=== PATIENT | female | born 1965 | race African-American/Black ===

== ENCOUNTER 2016-11-05 12:42 | Emergency (ER) | payer SELFPAY ==
[2016-11-05 12:53] VITALS: BMI 53.2
[2016-11-05] MEDS ORDERED: diphenhydrAMINE HCL 25 MG CAPSULE (FP) PO ONE (13:45)
--- NOTE | 2016-11-05 13:54 | PDOC ---
History of Present Illness - General Chief Complaint: Pain Stated Complaint: HEMATURIA Time Seen by Provider: 11/05/16 12:58 History Source: Patient Exam Limitations: Language Barrier (Used spanish medical interpreter #[id number]) - History of Present Illness Initial Comments: 11/05/16 13:54 The patient is a 51F Past History - Past Medical History Allergies/Adverse Reactions: Allergies Allergy/AdvReac Type Severity Reaction Status Date / Time No Known Allergies Allergy Verified 11/05/16 12:51 Home Medications: Ambulatory Orders Acetaminophen [Pain Reliever] 500 mg PO QID PRN 11/08/14 Atorvastatin Ca [Lipitor] 20 mg PO HS 11/08/14 Bupropion HCl [Wellbutrin Xl] 300 mg PO DAILY 11/08/14 Citalopram Hydrobromide [Celexa -] 40 mg PO DAILY 11/08/14 Diazepam [Valium -] 5 mg PO BID #14 tablet 11/08/14 Diltiazem Cd [Cardizem Cd -] 360 mg PO DAILY 11/08/14 Ergocalciferol (Vitamin D2) [Drisdol] 50,000 units PO WEEKLY 11/08/14 Folic Acid 1 mg PO DAILY 11/08/14 Furosemide [Lasix -] 20 mg PO DAILY 11/08/14 Linaclotide [Linzess] 145 mcg PO DAILY 11/08/14 Losartan Potassium [Cozaar] 100 mg PO DAILY 11/08/14 Mirabegron [Myrbetriq] 25 mg PO DAILY 11/08/14 Montelukast Na [Singulair -] 10 mg PO HS 11/08/14 Pantoprazole Sodium [Protonix] 40 mg PO DAILY 11/08/14 Propranolol HCl [Inderal LA] 120 mg PO DAILY 11/08/14 Solifenacin Succinate [Vesicare] 5 mg PO DAILY 11/08/14 Clindamycin [Cleocin -] 300 mg PO TID #30 capsule 02/28/16 Oxycodone HCl/Acetaminophen [Percocet 5-325 mg Tablet] 1 - 2 tab PO Q6H #28 tab MDD 4 02/28/16 Anemia: Yes Asthma: Yes Cardiac Disorders: Yes (palpitations) Diabetes: Yes GI Disorders: Yes HTN: Yes Hypercholesterolemia: Yes Suicide Attempt (Hx): No - Surgical History Abdominal Surgery: Yes - Immunization History Td Vaccination: No TDAP Vaccination: No Immunization Up to Date: No - Psycho/Social/Smoking Cessation Hx Anxiety: No Suicidal Ideation: No Smoking Status: No Smoking History: Never smoked Have you smoked in the past 12 months: No Number of Cigarettes Smoked Daily: 0 Hx Alcohol Use: No Drug/Substance Use Hx: No Substance Use Type: None *Physical Exam - Vital Signs Last Vital Signs Temp Pulse Resp BP Pulse Ox 98.2 F 78 20 161/110 98 11/05/16 12:51 11/05/16 12:51 11/05/16 12:51 11/05/16 12:51 11/05/16 12:51
[2016-11-05] MEDS ORDERED: morphine CARPU-JECT 4 MG/1 ML DISP.SYRIN IVPUSH ONE (14:05)
--- NOTE | 2016-11-05 14:11 | PDOC ---
History of Present Illness <Shell Lewis - Last Filed: 11/05/16 14:49> - General History Source: Patient, Old Records Exam Limitations: No Limitations <Hyun Jauregui - Last Filed: 11/05/16 17:57> - General History Source: Patient Exam Limitations: No Limitations - History of Present Illness Initial Comments: 11/05/16 14:20 The patient is a 51 year old female with a significant past medical history of horseshoe kidney, HTN and diabetes who presents to the ED, sent by PMD, for 15 days with complaints of right upper quadrant pain and right flank pain. The patient reports progressively worsening right upper quadrant pain and right sided flank pain. The patient also reports hematuria and a subjective fever associated with present symptoms. She visited her PMD yesterday and had normal CBC and chemistries but had blood in the urine. Denies dysuria. Denies nausea, vomiting, or diarrhea. Denies chest pain or shortness of breath. Denies any other symptoms. <Juan Carlos Powers - Last Filed: 11/05/16 18:08> - General Chief Complaint: Pain Stated Complaint: HEMATURIA Time Seen by Provider: 11/05/16 12:58 Past History <Shell Lewis - Last Filed: 11/05/16 14:49> - Past Medical History Anemia: Yes Asthma: Yes Cardiac Disorders: Yes (palpitations) Diabetes: Yes GI Disorders: Yes HTN: Yes Hypercholesterolemia: Yes Suicide Attempt (Hx): No - Surgical History Abdominal Surgery: Yes - Immunization History Td Vaccination: No TDAP Vaccination: No Immunization Up to Date: No - Psycho/Social/Smoking Cessation Hx Anxiety: No Suicidal Ideation: No Smoking Status: No Smoking History: Never smoked Have you smoked in the past 12 months: No Number of Cigarettes Smoked Daily: 0 Hx Alcohol Use: No Drug/Substance Use Hx: No Substance Use Type: None <Hyun Jauregui - Last Filed: 11/05/16 17:57> <Juan Carlos Powers - Last Filed: 11/05/16 18:08> - Past Medical History Allergies/Adverse Reactions: Allergies Allergy/AdvReac Type Severity Reaction Status Date / Time No Known Allergies Allergy Verified 11/05/16 12:51 Home Medications: Ambulatory Orders Bupropion HCl [Wellbutrin Xl] 300 mg PO DAILY 11/08/14 Folic Acid 1 mg PO DAILY 11/08/14 Furosemide [Lasix -] 20 mg PO DAILY 11/08/14 Linaclotide [Linzess] 145 mcg PO DAILY 11/08/14 Mirabegron [Myrbetriq] 25 mg PO DAILY 11/08/14 Pantoprazole Sodium [Protonix] 40 mg PO DAILY 11/08/14 Albuterol Sulfate Inhaler - [Ventolin Hfa Inhaler -] 2 inh PO PRN 11/05/16 Ammonium Lactate Cream [Lac-Hydrin 12% *Cream*] 1 applic TP BID 11/05/16 Azilsartan Medoxomil [Edarbi] 80 mg PO DAILY 11/05/16 Clotrimazole/Betamet Diprop [Lotrisone -] 1 applic TP DAILY 11/05/16 Duloxetine HCl [Cymbalta -] 60 mg PO DAILY 11/05/16 Esomeprazole Magnesium [Nexium 24Hr] 40 mg PO DAILY 11/05/16 Lidocaine 5% Patch [Lidoderm Patch -] 1 patch TP BID 11/05/16 Metformin HCl [Metformin HCl ER] 1 tab PO BID 11/05/16 Montelukast Na [Singulair -] 10 mg PO HS 11/05/16 Nystatin Powder [Nystop Topical Powder -] 10,000 units TP BID 11/05/16 Oxycodone HCl/Acetaminophen [Percocet 5-325 mg Tablet] 2 tab PO Q6H MDD 4 Propranolol HCl [Inderal LA] 120 mg PO DAILY 11/05/16 Sulfamethoxazole/Trimethoprim [Bactrim SS -] 1 tab PO BID 11/05/16 Review of Systems - Review of Systems Able to Perform ROS?: Yes Comments:: 11/05/16 14:20 CONSTITUTIONAL: + fever No reported: Diaphoresis, Generalized Weakness, Malaise, Loss of Appetite HEENT: No reported: Rhinorrhea, Nasal Congestion, Throat Pain, Throat Swelling, Difficulty Swallowing, Mouth Swelling, Ear Pain, Eye Pain, Visual Changes CARDIOVASCULAR: No reported: Chest Pain, Syncope, Palpitations, Irregular Heart Rate, Lightheadedness, Peripheral Edema RESPIRATORY: No reported: Cough, Shortness of Breath, SOB with Exertion, Orthopnea, Wheezing , Stridor, Hemoptysis GASTROINTESTINAL: + upper quadrant pain No reported Abdominal Distension, Nausea, Vomiting, Diarrhea, Constipation, Melena, Hematochezia GENITOURINARY: + flank pain, hematuria No reported: Dysuria, Frequency, Urgency, Hesitancy, Genital Pain MUSCULOSKELETAL: No reported: Myalgia, Arthralgia, Joint Swelling, Back pain, Neck Pain SKIN: No reported: Rash, Itching, Pallor HEMEATOLOGIC/IMMUNOLOGIC: No reported: Easy Bleeding, Easy Bruising, Lymphadenopathy, Frequent infections ENDOCRINE: No reported: Unexplained Weight Gain, Unexplained Weight Loss, Heat Intolerance , Cold Intolerance NEUROLOGIC: No reported: Headache, Focal Weakness, Paresthesias, Vertigo, Lightheadedness, Unsteady Gait, Seizure, Mental Status Changes, Incontinence PSYCHIATRIC: No reported: Anxiety, Depression All Other Systems: Reviewed and Negative <Juan Carlos Powers - Last Filed: 11/05/16 18:08> *Physical Exam - Vital Signs Last Vital Signs Temp Pulse Resp BP Pulse Ox 98.2 F 78 20 161/110 98 11/05/16 12:51 11/05/16 12:51 11/05/16 12:51 11/05/16 12:51 11/05/16 12:51 <Shell Lewis - Last Filed: 11/05/16 14:49> - Vital Signs Last Vital Signs Temp Pulse Resp BP Pulse Ox 98.2 F 78 20 161/110 98 11/05/16 12:51 11/05/16 12:51 11/05/16 12:51 11/05/16 12:51 11/05/16 12:51 <Hyun Jauregui - Last Filed: 11/05/16 17:57> - Vital Signs Last Vital Signs Temp Pulse Resp BP Pulse Ox 98.2 F 78 20 161/110 98 11/05/16 12:51 11/05/16 12:51 11/05/16 12:51 11/05/16 12:51 11/05/16 12:51 - Physical Exam Comments: 11/05/16 14:20 GENERAL: + obese, in obvious discomfort Awake and alert. HEENT: Normocephalic, atraumatic. PERRLA, EOMI. No conjunctival pallor. Sclera are non- icteric. Moist mucous membranes. Oropharynx is clear. NECK: Supple. Full ROM. No JVD. Carotid pulses 2+ and symmetric, without bruits. No thyromegaly. No lymphadenopathy. CARDIOVASCULAR: Regular rate and rhythm. No murmurs, rubs, or gallops. Distal pulses are 2+ and symmetric. PULMONARY: No evidence of respiratory distress. Lungs clear to auscultation bilaterally. No wheezing, rales or rhonchi. ABDOMINAL: + right upper quadrant tenderness with questionable ralph's sign, Soft. Non-distended. No rebound or guarding. No organomegaly. Normoactive bowel sounds. MUSCULOSKELETAL Normal range of motion at all joints. No bony deformities or tenderness. No CVA tenderness. EXTREMITIES: + 2+ bipedal edema No cyanosis. No clubbing. No calf tenderness. SKIN: Warm and dry. Normal capillary refill. No rashes. No jaundice. NEUROLOGICAL: Alert, awake, appropriate. Cranial nerves 2-12 intact. No deficits to light touch and temperature in face, upper extremities and lower extremities. No motor deficits in the in face, upper extremities and lower extremities. Normoreflexic in the upper and lower extremities. Normal speech. Toes are down- going bilaterally. Gait is normal without ataxia. PSYCHIATRIC: Cooperative. Good eye contact. Appropriate mood and affect. <Juan Carlos Powers - Last Filed: 11/05/16 18:08> Procedures - Bedside Ultrasound Bedside Ultrasound: Gallbladder Other: see [facility] for report <Shell Lewis - Last Filed: 11/05/16 14:49> ED Treatment Course - LABORATORY CBC & Chemistry Diagram: 11/05/16 14:35 11/05/16 14:35 - Medications Given in the ED: ED Medications Discontinued Medications Generic Name Dose Route Start Last Admin Trade Name Vamsi PRN Reason Stop Dose Admin Diphenhydramine HCl 25 mg 11/05/16 13:45 11/05/16 14:44 Benadryl - PO 11/05/16 13:46 Not Given ONCE ONE Morphine Sulfate 4 mg 11/05/16 14:05 11/05/16 14:44 Morphine Injection - IVPUSH 11/05/16 14:06 4 mg ONCE ONE Administration <Shell Lewis - Last Filed: 11/05/16 14:49> - LABORATORY CBC & Chemistry Diagram: 11/05/16 14:35 11/05/16 14:35 <Hyun Jauregui - Last Filed: 11/05/16 17:57> - LABORATORY CBC & Chemistry Diagram: 11/05/16 14:35 11/05/16 14:35 - RADIOLOGY Radiograph Interpretation: 11/05/16 16:28 CT/ABDOMEN & PELVIS CT W/O CONTR Impression: 1. Mild diffuse fatty infiltration of the liver. 2. Horseshoe kidneys. 3. s/p hysterectomy with bilateral ovarian cysts. Clinical correlation and follow up pelvic sonogram recommended. 4. No evidence of appendicitis or acute pathology within the abdomen or pelvis. Reported by: Carlyle Graves <Juan Carlos Powers - Last Filed: 11/05/16 18:08> Medical Decision Making - Medical Decision Making 11/05/16 14:49 focused ED ultrasound RUQ indication RUQ pain: Gallbladder scanned in two planes with curvilinear probe no stone, no wall thickening or edema. no pericholecystic fluid. positive sonographic ralph's wall measured 2mm CBD measured 4.8 mm impression: normal gallbladder, noted RUQ tenderness cirilli <Shell Lewis - Last Filed: 11/05/16 14:49> - Medical Decision Making 11/05/16 14:07 51-year-old female with history of hypertension and diabetes presents the emergency department with 2 week history of right upper quadrant and right flank pain with hematuria. Differential diagnosis includes but is not limited to : Nephrolithiasis, pyelonephritis, gallbladder disease, pancreatitis, electrolyte abnormality, dehydration, toxic/metabolic derangement. Plan: 1. Labs 2. Urine analysis 3. Pain management 4. CT scan of abdomen and pelvis 5. Observe and reevaluate 11/05/16 17:57 Addendum: Labs were reviewed and are noted in the EMR. CT scan shows bilateral coarse 2 kidneys as well as fatty infiltration of the liver and no nephrolithiasis. The patient was so tender in the right upper quadrant an ultrasound was obtained that was also negative for any intra-abdominal pathology except for fatty liver. I have reassessed the patient at this time and she is feeling improved and wants to go home. I've discussed all of the results of all of the studies with her. I have also stressed the importance to follow-up with her primary care physician. I will call Dr. Whatley to discuss the results and the plan for discharge. <Hyun Jauregui - Last Filed: 11/05/16 17:57> - Medical Decision Making 11/05/16 18:[address] Whatley at 18:07 <Juan Carlos Powers - Last Filed: 11/05/16 18:08> *DC/Admit/Observation/Transfer <DebbieShell - Last Filed: 11/05/16 14:49> - Discharge Dispostion Admit: No - Attestations Physician Attestion: 11/05/16 14:09 I, Dr. Hyun Jauregui, attest that the scribes documentation that appears above has been prepared under my direction and personally reviewed by me in its entirety. I confirmed that the note above accurately reflects all work, treatment, procedures, and medical decision-making performed by me. <Hyun Jauregui - Last Filed: 11/05/16 17:57> - Attestations Scribe Attestion: 11/05/16 14:20 Documentation prepared by Juan Carlos Powers, acting as medical scientific officer for Hyun Jauregui MD <Juan Carlos Powers - Last Filed: 11/05/16 18:08> Diagnosis at time of Disposition: RUQ pain - Discharge Dispostion Disposition: HOME Condition at time of disposition: Stable - Referrals Referrals: Terence Whatley MD [Primary Care Provider] - - Patient Instructions Printed Discharge Instructions: DI for Abdominal Pain-Adult Additional Instructions: Radiographic studies showed that you have fatty infiltration of the liver. Please follow-up with your primary care physician and return to the emergency department if your symptoms persist, worsen, or new symptoms arise.
[2016-11-05] MEDS ORDERED: morphine CARPU-JECT 4 MG/1 ML DISP.SYRIN ONE (14:40)
[2016-11-05 14:49] LABS: BASOPHIL 1.1 % (0-2.0); EOSINOPHIL 0.9 % (0-4.5); MCH 27.9 pg (25.7-33.7); MCHC 33.5 g/dl (32.0-36.0); MEAN CELL VOLUME 83.2 fl (80-96); MEAN PLT VOLUME 9.2 fl (7.5-11.1); NEUTROPHILS 62.3 % (42.8-82.8); PLATELET COUNT 361 K/MM3 (134-434); RDW 15.4 % (11.6-15.6); WHITE BLOOD COUNT 10.2 K/mm3 (4.0-10.0)
[2016-11-05 15:38] LABS: ALBUMIN 3.2 g/dl (3.4-5.0); ANION GAP 9 (8-16); BILIRUBIN,TOTAL 0.4 mg/dL (0.2-1.0); CALCIUM 8.9 mg/dL (8.5-10.1); CO2 29 mmol/L (21-32); CREATININE 0.9 mg/dL (0.55-1.02); GLUCOSE,RANDOM 79 mg/dL (74-106); SGPT/ALT 28 U/L (12-78); TOT PROT 7.1 g/dl (6.4-8.2)
[2016-11-05 15:42] LABS: ALK PHOS 101 U/L (45-117); TROPONIN I < 0.02 ng/ml (0.00-0.05)
[2016-11-05 15:49] LABS: CPK 137 IU/L (26-192); SGOT/AST 26 U/L (15-37)
[2016-11-05 17:41] LABS: URINE APPEARANCE CLEAR; URINE BILIRUBIN NEGATIVE (NEGATIVE); URINE BLOOD 1+ (NEGATIVE); URINE COLOR LTYELLOW; URINE GLUCOSE (UA) NEGATIVE (NEGATIVE); URINE KETONE NEGATIVE (NEGATIVE); URINE LEUK ESTERASE NEGATIVE (NEGATIVE); URINE NITRITE NEGATIVE (NEGATIVE); URINE UROBILINOGEN NEGATIVE mg/dL (0.2-1.0)
[2016-11-05 17:44] LABS: URINE PROTEIN 2+ (NEGATIVE)
[2016-11-05 18:24] VITALS: BP 138/98; PULSE 74; TEMP 97.8
[2016-11-05 19:23] LABS: URINE MUCUS RARE; URINE RBC 2 /hpf (0-3); URINE WBC <1 /hpf (3-5)
--- NOTE | 2016-11-06 14:46 | EKG ---
Test Reason : Blood Pressure : / mmHG Vent. Rate : 065 BPM Atrial Rate : 065 BPM P-R Int : 154 ms QRS Dur : 072 ms QT Int : 416 ms P-R-T Axes : 041 034 019 degrees QTc Int : 432 ms NORMAL SINUS RHYTHM CANNOT RULE OUT ANTERIOR INFARCT , AGE UNDETERMINED ABNORMAL ECG WHEN COMPARED WITH ECG OF 08-SEP-2012 09:53, NO SIGNIFICANT CHANGE WAS FOUND Confirmed by BRITNEY AGUIAR MD ([id number]) on 11/06/2016 2:45:47 PM Referred By: Confirmed By:BRITNEY AGUIAR MD
== END 2016-11-05 18:34 | disposition home or self-care (01) ==
LOC: JER 12:42
PROC: 3E033NZ Introduction of Analgesics, Hypnotics, Sedatives into Peripheral Vein, Percutaneous Approach (ICD-10-PCS; principal; 2016-11-05)
DX: R10.11 Right upper quadrant pain (principal); Q63.1 Lobulated, fused and horseshoe kidney; I10 Essential (primary) hypertension; E11.9 Type 2 diabetes mellitus without complications; R00.2 Palpitations
CPT/HCPCS: 36415; 74176-TC; 76705-TC; 80053; 81003; 81015; 83690; 84484; 85025; 87086; 93005; 93010; 99284-25; Q9967

== ENCOUNTER 2017-05-03 15:10 | Inpatient (IN) | payer OTHER ==
--- NOTE | 2017-05-03 15:57 | PDOC ---
Attending Attestation - Resident Resident Name: PerezColette - ED Attending Attestation I have performed the following: I have examined & evaluated the patient, The case was reviewed & discussed with the resident, I agree w/resident's findings & plan, Exceptions are as noted - Medical Decision Making 05/03/17 15:57 I, Dr. Vanessa Griffin, DO, attest that this document has been prepared under my direction and personally reviewed by me in its entirety. I further attest, that it accurately reflects all work, treatment, procedures and medical decision -making performed by me. 05/03/17 17:17 51yo female with abd wall abscess -sent by dr. whatley for i/d and admission pt with multiple abd wall abscess - most with induration and no fluctuance -larger LUQ abd wall abscess - bedside ultrasound shows very small pocket - will do i/d for cultures mostly cobblestoning and cellulitis will obtain labs, cultures, will start iv abx percocet for pain control will call dr. whatley 05/03/17 17:[address] whatley who is being covered by dr. hernandez 05/03/17 17:19 awaiting call back 05/03/17 18:45 pt with elevated wbc microblog sent to [facility] pt will need admission <Vanessa Griffin - Last Filed: 05/03/17 18:45> - HPI HPI: 05/03/17 16:31 51 F, PMH of horseshoe kidney, HTN, HLD, morbid obesity, and diabetes, sent by PCP for abscess I&D. Patient presents with multiple warm, red, and painful abscesses on her abdomen that developed 1 week ago. She reports the largest and most painful abscess is located at the LUQ. She also reports of a smaller abscess at the RUQ. She reports the abscess has been draining slightly. Patient appears tearful secondary to pain. She admits to associated fever and chills. Patient has a history of abdominal abscesses, was treated for one last year with a drainage and antibiotics. Pt denies CP/SOB/BLANCA/dizziness. Pt denies n/v/d/constipation. Pt denies dysuria, frequency, urgency and hematuria. - Physicial Exam PE: 05/03/17 16:31 GENERAL: Awake, alert, and fully oriented, (+) patient appears tearful. HEAD: No signs of trauma EYES: PERRLA, EOMI, sclera anicteric, conjunctiva clear ENT: Auricles normal inspection, hearing grossly normal, nares patent, oropharynx clear without exudates. Moist mucosa NECK: Normal ROM, supple, no lymphadenopathy, JVD, or masses LUNGS: Breath sounds equal, clear to auscultation bilaterally. No wheezes, and no crackles HEART: Regular rate and rhythm, normal S1 and S2, no murmurs, rubs or gallops ABDOMEN: (+) Multiple little indurated areas on abdomen. (+) 8x10 cm indurated region at the LUQ, hot to touch and ttp. Soft, normoactive bowel sounds. No guarding, no rebound. EXTREMITIES: Normal range of motion, no edema. No clubbing or cyanosis. No cords, erythema, or tenderness NEUROLOGICAL: Cranial nerves II through XII grossly intact. Normal speech SKIN: Warm, Dry, normal turgor, no rashes. - Medical Decision Making 05/03/17 16:55 Dr. Whatley (covered by Dr. Hernandez) was paged at 4:50 pm. Waiting for call back. <Lyric Ward - Last Filed: 05/03/17 19:07> Heart Score/ECG Review - ECG Intrepretation Comment:: 05/03/17 18:47 sinus at 90, nl axis, nl interval, t wave flattening diffusely <Vanessa Griffin - Last Filed: 05/03/17 18:45>
[2017-05-03] MEDS ORDERED: VANCOMYCIN 1 GRAM (PRE-DOCKED) 1,000 MG/250 ML BAG IVPB ONE ×2 (16:46→16:58)
[2017-05-03 18:06] LABS: BASO % 0.6 % (0-2.0); EOS % 0.3 % (0-4.5); HEMATOCRIT 38.7 % (32.4-45.2); HEMOGLOBIN 12.3 GM/dL (10.7-15.3); LYMPH % 12.3 % (8-40); MCH 26.2 pg (25.7-33.7); MCHC 31.8 g/dl (32.0-36.0); MEAN CELL VOLUME 82.5 fl (80-96); MEAN PLT VOLUME 9.2 fl (7.5-11.1); MONO % 7.8 % (3.8-10.2); PLATELET COUNT 346 K/MM3 (134-434); RBC 4.69 M/mm3 (3.60-5.2); RDW 15.7 % (11.6-15.6); WHITE BLOOD COUNT 18.4 K/mm3 (4.0-10.0)
[2017-05-03 18:07] LABS: VENOUS PC02 41.7 mmHg (38-52); VENOUS PH 7.38 (7.32-7.42); VENOUS PO2 73.6 mmHg (28-48)
--- NOTE | 2017-05-03 18:07 | PDOC ---
History of Present Illness - General Chief Complaint: Abscess Boil Stated Complaint: PCP SENT/ABSCESS BOIL Time Seen by Provider: 05/03/17 15:47 History Source: Patient, Family Exam Limitations: No Limitations - History of Present Illness Initial Comments: This is a 51 YOF with h/o prior abdominal cutaneous abscess (one year ago, resolved with I&D and Bactrim) and morbid obesity who presents with another abdominal cutaneous abscess and multiple smaller lesions on her skin. She notes 10/10 pain to the abscess which is on the skin overlying the LUQ. She additionally notes recent subjective fever, chills, and nausea. She denies any prior h/o MRSA but says her abscess was not cultured last year. She took an antibiotic from a prior prescription last night but cannot recall the name. Past History - Past Medical History Allergies/Adverse Reactions: Allergies Allergy/AdvReac Type Severity Reaction Status Date / Time No Known Allergies Allergy Verified 11/05/16 12:51 Home Medications: Ambulatory Orders Albuterol Sulfate [Proair Hfa] 8.5 gm IH QID PRN 05/03/17 Ammonium Lactate Lotion [Lac-Hydrin 12% Lotion -] 1 applic TP BID 05/03/17 Bupropion HCl [Wellbutrin Xl] 300 mg PO DAILY 05/03/17 Clotrimazole/Betamet Diprop [Lotrisone Cream (Small Tube)] 1 applic TP BID 05/03 Cyanocobalamin [Vitamin B12 -] 1,000 mcg PO DAILY 05/03/17 Cyclobenzaprine HCl 5 mg PO DAILY 05/03/17 Diltiazem HCl [Cardizem LA] 360 mg PO DAILY 05/03/17 Duloxetine HCl 60 mg PO DAILY 05/03/17 Ergocalciferol [Drisdol Oral Solution -] 50,000 units PO WEEKLY 05/03/17 Esomeprazole Magnesium [Nexium 24Hr] 40 mg PO DAILY 05/03/17 Folic Acid 1 mg PO DAILY 05/03/17 Furosemide [Lasix] 40 mg PO DAILY 05/03/17 Lidocaine 5% Patch [Lidoderm Patch -] 1 patch TP BID 05/03/17 Lubiprostone [Amitiza] 24 mcg PO DAILY 05/03/17 Metformin HCl [Metformin HCl ER] 500 mg PO BID 05/03/17 Mirabegron [Myrbetriq] 50 mg PO DAILY 05/03/17 Montelukast Na [Singulair -] 10 mg PO DAILY 05/03/17 Nystatin 1 each MC BID 05/03/17 Oxycodone HCl/Acetaminophen [Percocet 10-325 mg Tablet] 1 each PO QID PRN Pantoprazole Sodium 40 mg PO DAILY 05/03/17 Propranolol HCl [Propranolol HCl ER] 120 mg PO DAILY 05/03/17 Valsartan 320 mg PO DAILY 05/03/17 Anemia: Yes Asthma: Yes Cardiac Disorders: Yes (palpitations) Diabetes: Yes GI Disorders: Yes HTN: Yes Hypercholesterolemia: Yes - Surgical History Abdominal Surgery: Yes - Immunization History Td Vaccination: No TDAP Vaccination: No Immunization Up to Date: No - Suicide/Smoking/Psychosocial Hx Smoking Status: No Smoking History: Never smoked Have you smoked in the past 12 months: No Number of Cigarettes Smoked Daily: 0 Hx Alcohol Use: No Drug/Substance Use Hx: No Substance Use Type: None Review of Systems - Review of Systems Able to Perform ROS?: Yes Constitutional: Yes: Chills, Fever. No: Unexplained wgt Loss HEENTM: No: Nose Congestion, Throat Pain Respiratory: No: Cough, Shortness of Breath Cardiac (ROS): No: Chest Pain, Palpitations ABD/GI: Yes: Nausea. No: Constipated, Diarrhea, Vomiting : No: Burning, Dysuria Musculoskeletal: No: Back Pain, Neck Pain Integumentary: Yes: Lesions, Other (abscess). No: Bruising, Rash Neurological: No: Headache, Numbness, Tingling, Weakness, Dizziness Endocrine: No: Unexplained Weight Gain, Unexplained Weight Loss *Physical Exam - Vital Signs Last Vital Signs Temp Pulse Resp BP Pulse Ox 98.1 F 106 H 24 150/106 99 05/03/17 15:15 05/03/17 15:15 05/03/17 15:15 05/03/17 15:15 05/03/17 15:15 - Physical Exam General Appearance: Yes: Nourished, Appropriately Dressed, Obese, Other. No: Apparent Distress HEENT: positive: EOMI, Normal Voice, Hearing Grossly Normal. negative: Scleral Icterus (R), Scleral Icterus (L), Nasal Congestion Neck: positive: Trachea midline, Supple. negative: Tender, Rigid Respiratory/Chest: positive: Lungs Clear, Normal Breath Sounds. negative: Respiratory Distress, Crackles, Rhonchi, Stridor, Wheezing Cardiovascular: positive: Regular Rhythm, Regular Rate. negative: Murmur Gastrointestinal/Abdominal: positive: Normal Bowel Sounds, Soft, Other (abdomen morbidly obese, multiple 2cm areas of erythema with scabbed 0.5mm central lesion , one LUQ skin 6x6cm area of erythema/warmth/tenderness with central scabbed area with 3x3 cm of induration and fluctuance). negative: Organomegaly, Pulsatile Mass, Guarding Musculoskeletal: positive: Normal Inspection. negative: Decreased Range of Motion, Vertebral Tenderness Extremity: positive: Normal Capillary Refill, Normal Inspection, Normal Range of Motion. negative: Tender, Cyanosis Integumentary: positive: Normal Color, Dry, Warm. negative: Erythema, Rash, Bruising Neurologic: positive: bottler II-XII NML intact (grossly), Fully Oriented, Alert, Normal Mood/Affect, Normal Response, Motor Strength 5/5 Procedures - Incision and Drainage I&D Site: Left: Abdomen Betadine cleansed: No Anesthesia: 1% Lidocaine Volume(ml): 4 Blade Size: 11 Attempts: 1 Iodinated Packin/2 in Complications: none Dressing: Yes Progress: 5cc purulent fluid expressed, culture sent ED Treatment Course - LABORATORY CBC & Chemistry Diagram: 05/04/17 06:00 05/04/17 06:00 - Medications Given in the ED: ED Medications Discontinued Medications Generic Name Dose Route Start Last Admin Trade Name Freq PRN Reason Stop Dose Admin Oxycodone/Acetaminophen 1 combo 05/03/17 16:20 05/03/17 17:06 Percocet 5/325 - PO 05/03/17 16:21 1 combo ONCE ONE Administration Medical Decision Making - Medical Decision Making 51 YOF with one prior abscess 1 yr ago who p/w multiple small erythematous lesions, also LUQ abscess, likely MRSA. On exam VS wnl, moderate distress, morbidly elevated BMI, LUQ abscess with scab wo active drainage. DDX IBNLT MRSA infection, simple abscesses i.e. from folliculitis, etc. Ordered is CBCD CMP Lactate BCx VBG Coags T&S UA Cx Wound Cx Vancomycin CXR EKG. 05/03/17 18:56 CXR nl. WBC 18.4, lactate is 0.9. Patient has been given Vancomycin. I&D done with 5cc purulent fluid and WCx sent. Patient admitted to Dr. Leigh (for [facility]) for IV abx and further workup. *DC/Admit/Observation/Transfer Diagnosis at time of Disposition: Abscess, Morbid obesity Leukocytosis Qualifiers: Leukocytosis type: unspecified Qualified Code(s): D72.829 - Elevated white blood cell count, unspecified - Discharge Dispostion Condition at time of disposition: Guarded Admit: Yes - Referrals - Patient Instructions - Post Discharge Activity
[2017-05-03 18:14] LABS: URINE APPEARANCE CLEAR; URINE BILIRUBIN NEGATIVE (NEGATIVE); URINE BLOOD NEGATIVE (NEGATIVE); URINE COLOR YELLOW; URINE GLUCOSE (UA) NEGATIVE (NEGATIVE); URINE KETONE NEGATIVE (NEGATIVE); URINE LEUK ESTERASE NEGATIVE (NEGATIVE); URINE NITRITE NEGATIVE (NEGATIVE); URINE UROBILINOGEN NEGATIVE mg/dL (0.2-1.0)
[2017-05-03 18:18] LABS: INR 1.14 (0.82-1.09); PROTHROMBIN TIME (PATIENT) 12.9 SEC (9.98-11.88)
[2017-05-03 18:27] LABS: ALBUMIN 3.1 g/dl (3.4-5.0); ANION GAP 7 (8-16); BILIRUBIN,TOTAL 0.4 mg/dL (0.2-1.0); BLOOD UREA NITROGEN 16 mg/dL (7-18); CALCIUM 8.3 mg/dL (8.5-10.1); CHLORIDE 106 mmol/L (98-107); CO2 25 mmol/L (21-32); CREATININE 0.9 mg/dL (0.55-1.02); GLUCOSE,RANDOM 92 mg/dL (74-106); SGPT/ALT 17 U/L (12-78); SODIUM 138 mmol/L (136-145); TOT PROT 6.8 g/dl (6.4-8.2)
[2017-05-03 18:28] LABS: ALK PHOS 107 U/L (45-117)
[2017-05-03 18:35] LABS: POTASSIUM 4.4 mmol/L (3.5-5.1); SGOT/AST 16 U/L (15-37)
[2017-05-03 18:45] LABS: URINE PROTEIN 3+ (NEGATIVE)
[2017-05-03 18:47] LABS: EPI CELLS RARE /HPF (FEW); URINE MUCUS RARE
--- NOTE | 2017-05-03 20:10 | HP ---
CHIEF COMPLAINT: "I have these pimples on my stomach." PCP: Chacorta HISTORY OF PRESENT ILLNESS: This is a 51-year-old woman with past medical history of hypertension, NIDDM, CHF, A. fib who presents to emergency department with multiple abscesses noted to anterior abdominal wall. Patient states the abscesses appear approximately one week ago and one of the abscesses had started draining. The large abscess in the left upper quadrant and began self draining which is why she sought out care today. Patient states she had similar episode approximately one year ago and required IV antibiotics to help treat status post I&D. She denies fevers, chills, chest pain, shortness of breath, dizziness, nausea, vomiting, diarrhea. ER course was notable for: (1) I&D on abdominal wall abscess (2) Leukocytosis- 18.4 Recent Travel: denies PAST MEDICAL HISTORY: see hpi PAST SURGICAL HISTORY: see hpi Social History: Smoking: denies Alcohol: denies Drugs: denies Family History: Allergies No Known Allergies Allergy (Verified 11/05/16 12:51) HOME MEDICATIONS: Home Medications Medication Instructions Recorded Albuterol Sulfate [Proair Hfa] 8.5 gm IH QID PRN 05/03/17 Ammonium Lactate Lotion 1 applic TP BID 05/03/17 [Lac-Hydrin 12% Lotion -] Bupropion HCl [Wellbutrin Xl] 300 mg PO DAILY 05/03/17 Clotrimazole/Betamet Diprop 1 applic TP BID 05/03/17 [Lotrisone Cream (Small Tube)] Cyanocobalamin [Vitamin B12 -] 1,000 mcg PO DAILY 05/03/17 Cyclobenzaprine HCl 5 mg PO DAILY 05/03/17 Diltiazem HCl [Cardizem LA] 360 mg PO DAILY 05/03/17 Duloxetine HCl 60 mg PO DAILY 05/03/17 Ergocalciferol [Drisdol Oral 50,000 units PO WEEKLY 05/03/17 Solution -] Esomeprazole Magnesium [Nexium 40 mg PO DAILY 05/03/17 24Hr] Folic Acid 1 mg PO DAILY 05/03/17 Furosemide [Lasix] 40 mg PO DAILY 05/03/17 Lidocaine 5% Patch [Lidoderm Patch 1 patch TP BID 05/03/17 -] Lubiprostone [Amitiza] 24 mcg PO DAILY 05/03/17 Metformin HCl [Metformin HCl ER] 500 mg PO BID 05/03/17 Mirabegron [Myrbetriq] 50 mg PO DAILY 05/03/17 Montelukast Na [Singulair -] 10 mg PO DAILY 05/03/17 Nystatin 1 each MC BID 05/03/17 Oxycodone HCl/Acetaminophen 1 each PO QID PRN 05/03/17 [Percocet 10-325 mg Tablet] Pantoprazole Sodium 40 mg PO DAILY 05/03/17 Propranolol HCl [Propranolol HCl 120 mg PO DAILY 05/03/17 ER] Valsartan 320 mg PO DAILY 05/03/17 REVIEW OF SYSTEMS CONSTITUTIONAL: Absent: fever, chills, diaphoresis, generalized weakness, malaise, loss of appetite, weight change HEENT: Absent: rhinorrhea, nasal congestion, throat pain, throat swelling, difficulty swallowing, mouth swelling, ear pain, eye pain, visual changes CARDIOVASCULAR: Present- peripheral edema Absent: chest pain, syncope, palpitations, irregular heart rate, lightheadedness RESPIRATORY: Absent: cough, shortness of breath, dyspnea with exertion, orthopnea, wheezing, stridor, hemoptysis GASTROINTESTINAL: Absent: abdominal pain, abdominal distension, nausea, vomiting, diarrhea, constipation, melena, hematochezia GENITOURINARY: Absent: dysuria, frequency, urgency, hesitancy, hematuria, flank pain, genital pain MUSCULOSKELETAL: Absent: myalgia, arthralgia, joint swelling, back pain, neck pain SKIN: Present- abscesses to abdominal wall. Absent: rash, itching, pallor HEMATOLOGIC/IMMUNOLOGIC: Absent: easy bleeding, easy bruising, lymphadenopathy, frequent infections ENDOCRINE: Absent: unexplained weight gain, unexplained weight loss, heat intolerance, cold intolerance NEUROLOGIC: Absent: headache, focal weakness or paresthesias, dizziness, unsteady gait, seizure, mental status changes, bladder or bowel incontinence PSYCHIATRIC: Absent: anxiety, depression, suicidal or homicidal ideation, hallucinations. PHYSICAL EXAMINATION Vital Signs - 24 hr 05/03/17 05/03/17 15:15 18:32 Temperature 98.1 F 98.7 F Pulse Rate 106 H Respiratory 24 Rate Blood Pressure 150/106 O2 Sat by Pulse 99 Oximetry (%) GENERAL: Awake, alert, and fully oriented, in no acute distress. HEAD: Normal with no signs of trauma. EYES: Pupils equal, round and reactive to light, extraocular movements intact, sclera anicteric, conjunctiva clear. No lid lag. EARS, NOSE, THROAT: Ears normal, nares patent, oropharynx clear without exudates. Moist mucous membranes. NECK: Normal range of motion, supple without lymphadenopathy, JVD, or masses. LUNGS: Breath sounds equal, clear to auscultation bilaterally. No wheezes, and no crackles. No accessory muscle use. HEART: Regular rate and rhythm, normal S1 and S2 without murmur, rub or gallop. ABDOMEN: Obese, soft, nontender, not distended, normoactive bowel sounds, no guarding, no rebound, no masses. No hepatomegaly or splenomegaly. Erythema to I &D site in LUQ. 3 other non-fluctuant areas to to anterior abdominal wall. MUSCULOSKELETAL: Normal range of motion at all joints. No bony deformities or tenderness. No CVA tenderness. UPPER EXTREMITIES: 2+ pulses, warm, well-perfused. No cyanosis. No clubbing. No peripheral edema. LOWER EXTREMITIES: 2+ pulses, warm, well-perfused. No calf tenderness. Trace peripheral edema. NEUROLOGICAL: Cranial nerves II-XII intact. Normal speech. Normal gait. PSYCHIATRIC: Cooperative. Good eye contact. Appropriate mood and affect. SKIN: Warm, dry, normal turgor, no rashes or lesions noted, normal capillary refill. Erythema to I&D site in LUQ. 3 other non-fluctuant areas to to anterior abdominal wall. Laboratory Results - last 24 hr 05/03/17 05/03/17 05/03/17 17:52 17:52 17:52 WBC 18.4 H D RBC 4.69 Hgb 12.3 Hct 38.7 MCV 82.5 MCH 26.2 MCHC 31.8 L RDW 15.7 H Plt Count 346 MPV 9.2 Neutrophils % 79.0 D Lymphocytes % 12.3 D Monocytes % 7.8 Eosinophils % 0.3 Basophils % 0.6 PT with INR 12.90 H INR 1.14 VBG pH POC VBG pCO2 POC VBG pO2 Mixed VBG HCO3 Sodium 138 Potassium 4.4 Chloride 106 Carbon Dioxide 25 Anion Gap 7 L BUN 16 Creatinine 0.9 Creat Clearance w eGFR > 60 Random Glucose 92 Lactic Acid Calcium 8.3 L Total Bilirubin 0.4 AST 16 ALT 17 Alkaline Phosphatase 107 Total Protein 6.8 Albumin 3.1 L Urine Color Urine Appearance Urine pH Ur Specific Brule Urine Protein Urine Glucose (UA) Urine Ketones Urine Blood Urine Nitrite Urine Bilirubin Urine Urobilinogen Ur Leukocyte Esterase Urine WBC (Auto) Urine RBC (Auto) Ur Epithelial Cells Urine Mucus 05/03/17 05/03/17 05/03/17 17:57 18:00 18:01 WBC RBC Hgb Hct MCV MCH MCHC RDW Plt Count MPV Neutrophils % Lymphocytes % Monocytes % Eosinophils % Basophils % PT with INR INR VBG pH 7.38 POC VBG pCO2 41.7 POC VBG pO2 73.6 H Mixed VBG HCO3 24.3 Sodium Potassium Chloride Carbon Dioxide Anion Gap BUN Creatinine Creat Clearance w eGFR Random Glucose Lactic Acid 0.9 Calcium Total Bilirubin AST ALT Alkaline Phosphatase Total Protein Albumin Urine Color Yellow Urine Appearance Clear Urine pH 5.0 Ur Specific Brule 1.018 Urine Protein 3+ H Urine Glucose (UA) Negative Urine Ketones Negative Urine Blood Negative Urine Nitrite Negative Urine Bilirubin Negative Urine Urobilinogen Negative Ur Leukocyte Esterase Negative Urine WBC (Auto) 1 Urine RBC (Auto) 3 Ur Epithelial Cells Rare Urine Mucus Rare ASSESSMENT/PLAN: A: 51-year-old [id number] diabetic woman with multiple abscesses on abdomen. P: Abscess with cellulitis - WBC- 18.4 - I&D done in ER - Cultures pending - vancomycin IV - ID consult HTN - Cardizem - Propranolol - Valsartan CHF - Daily weights - Lasix - appears euvolemic - Valsartan NIDDM - Hold metformin - FS qACHS - ISS - A1c Asthma - Albuterol MDI prn - Singular F/E/N - Low Na diabetic diet - replete prn - daily bmp PPX - sqh - OOB Dispo- requires inpatient treatment of her acute medical condition Visit type - Emergency Visit Emergency Visit: Yes ED Registration Date: 05/03/17 Care time: The patient presented to the Emergency Department on the above date and was hospitalized for further evaluation of their emergent condition. - New Patient This patient is new to me today: Yes Date on this admission: 05/04/17 - Critical Care Critical Care patient: No
[2017-05-03] MEDS ORDERED: ALBUTEROL SO4 18 GM HFA INHALER IH PRN (20:16)
[2017-05-03] MEDS ORDERED: MORPHINE SULFATE 10 MG/1 ML *VIAL ONE (20:18)
[2017-05-03] MEDS: MORPHINE SULFATE 10 MG/1 ML *VIAL IVPUSH ONE ×2 (20:24→21:00)
[2017-05-03] MEDS ORDERED: amLODIPine BESYLATE 5 MG TABLET (FP) ONE (21:52)
[2017-05-03] MEDS ORDERED: NYSTATIN POWDER 100,000 UNITS/GM - 15 GM TOPICAL POWDER TP SCH (22:00)
[2017-05-03] MEDS: AMMONIUM LACTATE 12% LOTION 225 GM BOTTLE TP SCH (22:35)
[2017-05-03] MEDS: HEPARIN NA (PORCINE) 5,000 UNITS/ML 1ML VIAL SQ SCH (22:35)
[2017-05-03] MEDS: INSULIN SLIDING SCALE (NOVOLOG) 1 VIAL SQ SCH (22:45)
[2017-05-04] MEDS ORDERED: dilTIAZem HCL 60 MG TABLET (FP) ONE (00:06)
[2017-05-04] MEDS: ACETAMINOPHEN 325 MG TABLET (FP) PO PRN ×2 (06:12→23:39)
[2017-05-04 06:28] LABS: BASO % 0.7 % (0-2.0); EOS % 0.2 % (0-4.5); HEMATOCRIT 37.3 % (32.4-45.2); HEMOGLOBIN 11.8 GM/dL (10.7-15.3); MCH 26.2 pg (25.7-33.7); MCHC 31.7 g/dl (32.0-36.0); MEAN CELL VOLUME 82.5 fl (80-96); MEAN PLT VOLUME 8.7 fl (7.5-11.1); MONO % 10.6 % (3.8-10.2); NEUT % 75.5 % (42.8-82.8); PLATELET COUNT 358 K/MM3 (134-434); RBC 4.52 M/mm3 (3.60-5.2); RDW 15.8 % (11.6-15.6); WHITE BLOOD COUNT 16.7 K/mm3 (4.0-10.0)
[2017-05-04] MEDS: INSULIN SLIDING SCALE (NOVOLOG) 1 VIAL SQ SCH ×4 (06:59→23:07)
[2017-05-04 07:45] LABS: CHLORIDE 103 mmol/L (98-107); POTASSIUM 4.5 mmol/L (3.5-5.1); SODIUM 139 mmol/L (136-145)
[2017-05-04 07:51] LABS: ANION GAP 9 (8-16); BLOOD UREA NITROGEN 13 mg/dL (7-18); CALCIUM 8.8 mg/dL (8.5-10.1); CO2 27 mmol/L (21-32); GLUCOSE,RANDOM 111 mg/dL (74-106)
[2017-05-04] MEDS ORDERED: MORPHINE SULFATE 10 MG/1 ML *VIAL IVPUSH PRN (09:51)
[2017-05-04] MEDS ORDERED: PATIENT'S OWN MEDICATION (NON-FORMULARY) (Mirabegron [Myrbetriq] 50 MG) PO SCH (10:00)
[2017-05-04] MEDS ORDERED: PATIENT'S OWN MEDICATION (NON-FORMULARY) (Lubiprostone [Amitiza] 24 MCG) PO SCH (10:00)
[2017-05-04] MEDS ORDERED: MORPHINE SULFATE 10 MG/1 ML *VIAL ONE (10:30)
[2017-05-04] MEDS: AMMONIUM LACTATE 12% LOTION 225 GM BOTTLE TP SCH ×2 (10:50→23:07)
[2017-05-04] MEDS: HEPARIN NA (PORCINE) 5,000 UNITS/ML 1ML VIAL SQ SCH ×2 (10:50→23:07)
[2017-05-04] MEDS: CYANOCOBALAMIN 1,000 MCG TABLET (FP) PO SCH (10:55)
[2017-05-04] MEDS: MONTELUKAST NA 10 MG TABLET PO SCH (10:55)
[2017-05-04] MEDS: VALSARTAN 160 MG TABLET (UD) PO SCH (10:55)
[2017-05-04] MEDS: PANTOPRAZOLE 40 MG TABLET (FP) PO SCH (10:55)
[2017-05-04] MEDS: FOLIC ACID 1 MG TABLET (FP) PO SCH (10:55)
[2017-05-04] MEDS: FUROSEMIDE 40 MG TABLET (FP) PO SCH (10:55)
[2017-05-04] MEDS: DULoxetine HCL 30 MG CAPSULE.DR (FP) PO SCH (10:55)
[2017-05-04 12:05] VITALS: BMI 47.6
--- NOTE | 2017-05-04 12:29 | EKG ---
Test Reason : Blood Pressure : / mmHG Vent. Rate : 090 BPM Atrial Rate : 090 BPM P-R Int : 138 ms QRS Dur : 084 ms QT Int : 358 ms P-R-T Axes : 061 013 048 degrees QTc Int : 437 ms NORMAL SINUS RHYTHM POOR R WAVE PROGRESSION NONSPECIFIC T WAVE ABNORMALITY ABNORMAL ECG WHEN COMPARED WITH ECG OF 20-MAR-2017 11:39, NONSPECIFIC T WAVE ABNORMALITY NOW EVIDENT IN ANTERIOR LEADS CLINICAL CORRELATION IS RECOMMENDED Confirmed by FLORY RODRÍGUEZ, LUZMARIA ([id number]) on 05/04/2017 12:28:53 PM Referred By: Confirmed By:LUZMARIA RUTH MD
[2017-05-04] MEDS ORDERED: ONDANSETRON 4 MG/2 ML VIAL IVPB PRN (14:17)
[2017-05-04] MEDS ORDERED: ONDANSETRON *ODT* 4 MG TABLET SL PRN (14:17)
[2017-05-04] MEDS ORDERED: HYDROmorphone HCL CARPU-JECT 2 MG/1 ML DISP.SYRIN ONE (14:22)
[2017-05-04] MEDS: HYDROmorphone HCL CARPU-JECT 1 MG/1 ML DISP.SYRIN IVPB PRN (14:37)
--- NOTE | 2017-05-04 15:23 | PN ---
Progress Note, Physician Chief Complaint: AWAKE C/O NAUSEA CHART AND NOTES REVIEWED - Current Medication List Current Medications: Active Medications Acetaminophen (Tylenol -) 650 mg PO Q6H PRN PRN Reason: PAIN LEVEL 4 - 6 Last Admin: 05/04/17 06:12 Dose: 650 mg Albuterol Sulfate (Ventolin Hfa Inhaler -) 2 puff IH Q4H PRN PRN Reason: SHORT OF BREATH/WHEEZING Bupropion HCl (Wellbutrin Xl -) 300 mg PO DAILY [facility] Last Admin: 05/04/17 10:55 Dose: 300 mg Cyanocobalamin (Vitamin B12 -) 1,000 mcg PO DAILY [facility] Last Admin: 05/04/17 10:55 Dose: 1,000 mcg Diltiazem HCl (Cardizem Cd -) 360 mg PO DAILY [facility] Last Admin: 05/04/17 10:55 Dose: 360 mg Duloxetine HCl (Cymbalta -) 60 mg PO DAILY [facility] Last Admin: 05/04/17 10:55 Dose: 60 mg Ergocalciferol (Drisdol -) 50,000 unit PO Fr@1000 [facility] Folic Acid (Folic Acid -) 1 mg PO DAILY [facility] Last Admin: 05/04/17 10:55 Dose: 1 mg Furosemide (Lasix -) 40 mg PO DAILY [facility] Last Admin: 05/04/17 10:55 Dose: 40 mg Heparin Sodium (Porcine) (Heparin -) 5,000 unit SQ BID [facility] Last Admin: 05/04/17 10:50 Dose: 5,000 unit Hydromorphone HCl (Dilaudid Injection -) 1 mg IVPB Q4H PRN PRN Reason: PAIN LEVEL 6-10 Last Admin: 05/04/17 14:37 Dose: 1 mg Vancomycin HCl 1,250 mg/ (Dextrose) 250 mls @ 250 mls/hr IVPB BID [facility] PRN Reason: Protocol Insulin Aspart (Novolog Vial Sliding Scale -) 1 vial SQ ACHS [facility] PRN Reason: Protocol Last Admin: 05/04/17 12:37 Dose: Not Given Lactic Acid (Lac-Hydrin 12) 1 applic TP BID [facility] Last Admin: 05/04/17 10:50 Dose: 1 applic Montelukast Sodium (Singulair -) 10 mg PO DAILY [facility] Last Admin: 05/04/17 10:55 Dose: 10 mg Non-Formulary Medication (Lubiprostone [Amitiza]) 24 mcg PO DAILY [facility] Non-Formulary Medication (Mirabegron [Myrbetriq]) 50 mg PO DAILY [facility] Ondansetron HCl (Zofran Odt -) 4 mg SL Q6H PRN PRN Reason: NAUSEA AND/OR VOMITING Ondansetron HCl (Zofran Injection) 8 mg IVPB Q6H PRN PRN Reason: NAUSEA Last Admin: 05/04/17 14:37 Dose: 8 mg Pantoprazole Sodium (Protonix -) 40 mg PO DAILY [facility] Last Admin: 05/04/17 10:55 Dose: 40 mg Propranolol HCl (Inderal La -) 120 mg PO DAILY [facility] Last Admin: 05/04/17 10:55 Dose: 120 mg Valsartan (Diovan -) 320 mg PO DAILY [facility] Last Admin: 05/04/17 10:55 Dose: 320 mg - Objective Vital Signs: Vital Signs Temperature 98.1 F 05/04/17 14:41 Pulse Rate 92 H 05/04/17 14:41 Respiratory Rate 20 05/04/17 14:41 Blood Pressure 125/75 05/04/17 14:41 O2 Sat by Pulse Oximetry (%) 100 05/04/17 14:41 Constitutional: Yes: Mild Distress Eyes: Yes: WNL HENT: Yes: WNL Neck: Yes: WNL Cardiovascular: Yes: WNL Respiratory: Yes: WNL Gastrointestinal: Yes: Other Genitourinary: Yes: Other Musculoskeletal: Yes: WNL Extremities: Yes: WNL Edema: No Peripheral Pulses WNL: Yes Integumentary: Yes: Incision Wound/Incision: Yes: Dressing Dry and Intact, Unapproximated Neurological: Yes: WNL ...Motor Strength: WNL Psychiatric: Yes: WNL Labs: CBC, BMP 05/04/17 06:00 05/04/17 06:00 INR, PTT INR 1.14 (0.82-1.09) 05/03/17 17:52 Problem List - Problems (1) Abscess Code(s): L02.91 - CUTANEOUS ABSCESS, UNSPECIFIED (2) Leukocytosis Code(s): D72.829 - ELEVATED WHITE BLOOD CELL COUNT, UNSPECIFIED Qualifiers: Leukocytosis type: unspecified Qualified Code(s): D72.829 - Elevated white blood cell count, unspecified (3) Morbidly obese Code(s): E66.01 - MORBID (SEVERE) OBESITY DUE TO EXCESS CALORIES (4) Abscess of abdominal wall Code(s): L02.211 - CUTANEOUS ABSCESS OF ABDOMINAL WALL (5) Asthma Code(s): J45.909 - UNSPECIFIED ASTHMA, UNCOMPLICATED (6) DVT prophylaxis Code(s): [id number] - (7) Diabetes mellitus Code(s): E11.9 - TYPE 2 DIABETES MELLITUS WITHOUT COMPLICATIONS Qualifiers: Diabetes mellitus type: type 2 Laterality: unspecified laterality (8) HLD (hyperlipidemia) Code(s): E78.5 - HYPERLIPIDEMIA, UNSPECIFIED Qualifiers: Hyperlipidemia type: unspecified Qualified Code(s): E78.5 - Hyperlipidemia , unspecified (9) HTN (hypertension) Code(s): I10 - ESSENTIAL (PRIMARY) HYPERTENSION Qualifiers: Hypertension type: unspecified Qualified Code(s): I10 - Essential (primary ) hypertension Assessment/Plan IV ABX GRAM STAIN SHOWS GRAM+ IN CLUSTERS ID CONSULT ON VANCO SX EVAL WOUND CARE DM/HTN WEIGHT LOSS DVT PROPHYLAXIS
--- NOTE | 2017-05-04 15:30 | CON.ID ---
Consult Consult Specialty:: Infectious Disease - History of Present Illness History of Present Illness: This is a 51 y.o. female with PMH of NIDDM, CHF, AFIB, and morbid obesity who presents with complaints of abd wall indurated lesions which began developing about a week ago. The largest lesion is located in the upper Lt abdomen and is extremely painful. Other smaller lesions have been growing in other areas of the abdomen since. States that it began as a small "pimple" and progressively grew. Pt reports having subjective fever and chills since 2 nights ago. The LUQ lesion started draining today. She was hospitalized in January 2016 with same problem and underwent I+D. Wound cultures then isolated MRSA. Pt in ER noted to have leukocytosis and had drainage done at bedside, started on antibiotics. She has been afebrile. - History Source History Provided By: Patient, Family Member Limitations to Obtaining History: No Limitations - Past Medical History Cardio/Vascular: Yes: HTN, Hyperlipdemia Pulmonary: Yes: Asthma Gastrointestinal: Yes: GERD Infectious Disease: Yes: MRSA (skin abscesses +MRSA) Psych: Yes: Depression Endocrine: Yes: Diabetes Mellitus - Alcohol/Substance Use Hx Alcohol Use: No - Smoking History Smoking history: Never smoked Have you smoked in the past 12 months: No Aproximately how many cigarettes per day: 0 - Social History History of Recent Travel: No Home Medications - Allergies Allergies/Adverse Reactions: Allergies Allergy/AdvReac Type Severity Reaction Status Date / Time No Known Allergies Allergy Verified 11/05/16 12:51 - Home Medications Home Medications: Ambulatory Orders Albuterol Sulfate [Proair Hfa] 8.5 gm IH QID PRN 05/03/17 Ammonium Lactate Lotion [Lac-Hydrin 12% Lotion -] 1 applic TP BID 05/03/17 Bupropion HCl [Wellbutrin Xl] 300 mg PO DAILY 05/03/17 Clotrimazole/Betamet Diprop [Lotrisone Cream (Small Tube)] 1 applic TP BID 05/03 Cyanocobalamin [Vitamin B12 -] 1,000 mcg PO DAILY 05/03/17 Cyclobenzaprine HCl 5 mg PO DAILY 05/03/17 Diltiazem HCl [Cardizem LA] 360 mg PO DAILY 05/03/17 Duloxetine HCl 60 mg PO DAILY 05/03/17 Ergocalciferol [Drisdol Oral Solution -] 50,000 units PO WEEKLY 05/03/17 Esomeprazole Magnesium [Nexium 24Hr] 40 mg PO DAILY 05/03/17 Folic Acid 1 mg PO DAILY 05/03/17 Furosemide [Lasix] 40 mg PO DAILY 05/03/17 Lidocaine 5% Patch [Lidoderm Patch -] 1 patch TP BID 05/03/17 Lubiprostone [Amitiza] 24 mcg PO DAILY 05/03/17 Metformin HCl [Metformin HCl ER] 500 mg PO BID 05/03/17 Mirabegron [Myrbetriq] 50 mg PO DAILY 05/03/17 Montelukast Na [Singulair -] 10 mg PO DAILY 05/03/17 Nystatin 1 each MC BID 05/03/17 Oxycodone HCl/Acetaminophen [Percocet 10-325 mg Tablet] 1 each PO QID PRN Pantoprazole Sodium 40 mg PO DAILY 05/03/17 Propranolol HCl [Propranolol HCl ER] 120 mg PO DAILY 05/03/17 Valsartan 320 mg PO DAILY 05/03/17 Review of Systems - Review of Systems Constitutional: reports: No Symptoms HENT: reports: No Symptoms Neck: reports: No Symptoms Cardiovascular: reports: No Symptoms Respiratory: reports: No Symptoms Gastrointestinal: reports: No Symptoms Genitourinary: reports: No Symptoms Musculoskeletal: reports: No Symptoms Integumentary: reports: Lump (indurated lesions on abd wall) Neurological: reports: No Symptoms Endocrine: reports: No Symptoms Psychiatric: reports: No Symptoms Pain Intensity: 8 Physical Exam Vital Signs: Vital Signs Temperature 98.1 F 05/04/17 14:41 Pulse Rate 92 H 05/04/17 14:41 Respiratory Rate 20 05/04/17 14:41 Blood Pressure 125/75 05/04/17 14:41 O2 Sat by Pulse Oximetry (%) 100 05/04/17 14:41 Constitutional: Yes: Mild Distress (due to pain) Neck: Yes: Supple Cardiovascular: Yes: Regular Rate and Rhythm Respiratory: Yes: CTA Bilaterally Gastrointestinal: Yes: Normal Bowel Sounds, Soft, Abdomen, Obese Breast(s): Yes: WNL Musculoskeletal: Yes: WNL Extremities: Yes: WNL Integumentary: Yes: Other (Lt upper abd wall large indurated lesion with surrounding warmth/erythema/tenderness, dressed after incision Small other indurated, nonfluctuant lesions on anterior abd wall and Rt lateral abd wall) Neurological: Yes: Alert Labs: CBC, BMP 05/04/17 06:00 05/04/17 06:00 Microbiology 05/03/17 Unknown Abscess Gram Stain - Final 05/03/17: wound Gram stain - GPC in cluster, GPC in pairs and chains Wound Culture isolate pending Blood culture/Urine culture results pending Assessment/Plan 51 y.o. female with PMH of NIDDM, HTN, AFIB, CHF, and morbid obesity with indurated abdominal wall lesions largest in Lt upper abdomen noted to be tender , indurated, erythematous. Previous history of MRSA abscesses. Abd wall Abscesses/p I+D of LUQ collection Leukocytosis - started on Vancomycin IV - monitor wbc trend, renal function - follow up wound and blood culture results - wound care - contact precautions d/w Dr. Leigh Thank you
[2017-05-04] MEDS ORDERED: LIDOCAINE 1%/EPI 1:100000 (20 ML MULTI DOSE VIAL) ONE ×2 (15:54→15:56)
--- NOTE | 2017-05-04 16:25 | CONSULT ---
Consult Consult Specialty:: General Surgery Referred by:: Dr. Leigh Reason for Consultation:: abdominal wall abscess with cellulitis - History of Present Illness Chief Complaint: "pimples on my stomach" with one markedly worse History of Present Illness: 51yo morbidly obese F with h/o previously I&D'd right abdominal wall abscess Jan 2016 which was MRSA, presented to ER with multiple small pimples on abdomen and one starting to get slightly larger and redder along right side and one markedly more swollen, reddened and painful on LUQ; all started about a week ago. She does not use insulin. Associated with f/c yesterday, headache before but not now, some nausea but vomiting only earlier today after pain medication. Initial wbc in ER was 18, now 16. ER resident performed I&D last night and packed with iodoform, but wick fell out at some point and was replaced today. ID has seen patient for abx management, she got Vanco yesterday. Surgery is asked to see patient to ensure adequate drainage and follow for wound management. 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) Psych: Yes: Depression Endocrine: Yes: Diabetes Mellitus - Past Surgical History Past Surgical History: Yes: Hysterectomy (vaginal), Tubal Ligation (laparoscopic ) - Alcohol/Substance Use Hx Alcohol Use: No History of Substance Use: reports: None - Smoking History Smoking history: Never smoked Have you smoked in the past 12 months: No Aproximately how many cigarettes per day: 0 - Social History History of Recent Travel: No Home Medications - Allergies Allergies/Adverse Reactions: Allergies Allergy/AdvReac Type Severity Reaction Status Date / Time No Known Allergies Allergy Verified 11/05/16 12:51 - Home Medications Home Medications: Ambulatory Orders Albuterol Sulfate [Proair Hfa] 8.5 gm IH QID PRN 05/03/17 Ammonium Lactate Lotion [Lac-Hydrin 12% Lotion -] 1 applic TP BID 05/03/17 Bupropion HCl [Wellbutrin Xl] 300 mg PO DAILY 05/03/17 Clotrimazole/Betamet Diprop [Lotrisone Cream (Small Tube)] 1 applic TP BID 05/03 Cyanocobalamin [Vitamin B12 -] 1,000 mcg PO DAILY 05/03/17 Cyclobenzaprine HCl 5 mg PO DAILY 05/03/17 Diltiazem HCl [Cardizem LA] 360 mg PO DAILY 05/03/17 Duloxetine HCl 60 mg PO DAILY 05/03/17 Ergocalciferol [Drisdol Oral Solution -] 50,000 units PO WEEKLY 05/03/17 Esomeprazole Magnesium [Nexium 24Hr] 40 mg PO DAILY 05/03/17 Folic Acid 1 mg PO DAILY 05/03/17 Furosemide [Lasix] 40 mg PO DAILY 05/03/17 Lidocaine 5% Patch [Lidoderm Patch -] 1 patch TP BID 05/03/17 Lubiprostone [Amitiza] 24 mcg PO DAILY 05/03/17 Metformin HCl [Metformin HCl ER] 500 mg PO BID 05/03/17 Mirabegron [Myrbetriq] 50 mg PO DAILY 05/03/17 Montelukast Na [Singulair -] 10 mg PO DAILY 05/03/17 Nystatin 1 each MC BID 05/03/17 Oxycodone HCl/Acetaminophen [Percocet 10-325 mg Tablet] 1 each PO QID PRN Pantoprazole Sodium 40 mg PO DAILY 05/03/17 Propranolol HCl [Propranolol HCl ER] 120 mg PO DAILY 05/03/17 Valsartan 320 mg PO DAILY 05/03/17 Family Disease History - Family Disease History Family History: Unremarkable (noncontributory) Review of Systems - Review of Systems Constitutional: reports: Chills, Fever Eyes: denies: Blurred Vision, Recent Change in Vision HENT: denies: Nasal Congestion, Throat Pain Neck: denies: Swollen Glands, Tenderness Cardiovascular: denies: Chest Pain, Palpitations Respiratory: denies: Cough, SOB Gastrointestinal: reports: Abdominal Pain (at lesion sites), Nausea. denies: Constipation, Diarrhea, Vomiting Genitourinary: denies: Burning, Dysuria Musculoskeletal: denies: Joint Pain, Joint Swelling Integumentary: reports: Erythema (LUQ abdominal wall), Lesions (with hpi), Lump (LUQ abdominal wall) Neurological: reports: Dizziness, Headache Physical Exam Vital Signs: Vital Signs Temperature 98.1 F 05/04/17 14:41 Pulse Rate 92 H 05/04/17 14:41 Respiratory Rate 20 05/04/17 14:41 Blood Pressure 125/75 05/04/17 14:41 O2 Sat by Pulse Oximetry (%) 100 05/04/17 14:41 Constitutional: Yes: No Distress, Calm, Obese Eyes: Yes: Conjunctiva Clear, EOM Intact HENT: Yes: Atraumatic, Normocephalic Neck: Yes: Supple, Trachea Midline Cardiovascular: Yes: Regular Rate and Rhythm. No: Murmur Respiratory: Yes: Regular, CTA Bilaterally Gastrointestinal: Yes: Soft, Abdomen, Obese (morbidly), Hypoactive Bowel Sounds , Other (multiple small pimple-like lesions on abdominal wall with two more prominent (see below)). No: Tenderness ...Rectal Exam: Yes: Deferred Renal/: No: CVA Tenderness - Left, CVA Tenderness - Right Musculoskeletal: No: Joint Stiffness, Joint Swelling Extremities: No: Cool, Cyanosis Peripheral Pulses WNL: Yes Integumentary: Yes: Erythema (at LUQ and small local spot at right lateral slightly indurated spot), Incision (LUQ abd wall (s/p I&D)), Other (multiple tiny pustular points, 3-4 scattered on abdominal wall). No: Jaundice Wound/Incision: Yes: Dressing Removed (LUQ abdomen - wound still with some underlying induration, tender, locally erythematous), Draining (pus expressible from wound), Reddened (some erythema surrounding wound), Unapproximated (very shallow opening LUQ abdominal wall with short wick of packing), Other (on right lateral abdominal wall, one of the small lesions is slightly larger than the pimples, ~1cm of erythema, mild induration, scabby punctum, no drainage, mild tenderness). No: Dressing Dry and Intact (seropurulent drainage on dressing) Neurological: Yes: Alert, Oriented Psychiatric: Yes: Alert, Oriented Labs: CBC, BMP 05/04/17 06:00 05/04/17 06:00 CMP Sodium 139 mmol/L (136-145) 05/04/17 06:00 Potassium 4.5 mmol/L (3.5-5.1) 05/04/17 06:00 Chloride 103 mmol/L (98-107) 05/04/17 06:00 Carbon Dioxide 27 mmol/L (21-32) 05/04/17 06:00 Anion Gap 9 (8-16) 05/04/17 06:00 BUN 13 mg/dL (7-18) 05/04/17 06:00 Creatinine 1.0 mg/dL (0.55-1.02) 05/04/17 06:00 Creat Clearance w eGFR > 60 (>60) 05/03/17 17:52 POC Glucometer 129.41584 UNITS (80-120) 05/04/17 12:21 Random Glucose 111 mg/dL (74-106) H 05/04/17 06:00 Hemoglobin A1c % 5.7 % (4.8-6.0) 05/04/17 08:41 Lactic Acid 0.9 mmol/L (0.0-2.0) 05/03/17 17:57 Calcium 8.8 mg/dL (8.5-10.1) 05/04/17 06:00 Total Bilirubin 0.4 mg/dL (0.2-1.0) 05/03/17 17:52 AST 16 U/L (15-37) 05/03/17 17:52 ALT 17 U/L (12-78) 05/03/17 17:52 Alkaline Phosphatase 107 U/L (45-117) 05/03/17 17:52 Total Protein 6.8 g/dl (6.4-8.2) 05/03/17 17:52 Albumin 3.1 g/dl (3.4-5.0) L 05/03/17 17:52 wbc down from 18 Problem List - Problems (1) Abscess of abdominal wall Assessment/Plan: admitted to medicine for IV antibiotics ID on board for Vancomycin s/p I&D by ER yesterday, wound in need of further drainage as evidenced by additional purulent drainage and local induration more extensive I&D performed under local at bedside (see separate procedure note ) pocket of pus and necrotic tissue evacuated with some additional overlying skin edges trimmed to facilitate packing packed with 1/2" iodoform, covered with gauze and tape pt tolerated well will follow for daily dressing/packing changes pt will need SW/JOAQUÍN to arrange VNS for daily wound care and packing changes on discharge home (pt had VNS Jan for previous similar wound per daughter) anticipate 1/2" iodoform or plain packing strip to be used daily pt will ultimately follow up with me in clinic in ~2 weeks Thank you for the opportunity to participate in the care of this patient. Code(s): L02.211 - CUTANEOUS ABSCESS OF ABDOMINAL WALL (2) Cellulitis of left abdominal wall Assessment/Plan: antibiotics per ID s/p I&D of abscess Code(s): L03.311 - CELLULITIS OF ABDOMINAL WALL (3) Morbidly obese Code(s): E66.01 - MORBID (SEVERE) OBESITY DUE TO EXCESS CALORIES (4) Diabetes mellitus Code(s): E11.9 - TYPE 2 DIABETES MELLITUS WITHOUT COMPLICATIONS Qualifiers: Diabetes mellitus type: type 2 Diabetes mellitus complication status: with skin complications Diabetes mellitus complication detail: with other skin complication Diabetes mellitus terminologist insulin use: without nursing home use Qualified Code(s): E11.628 - Type 2 diabetes mellitus with other skin complications
--- NOTE | 2017-05-04 16:43 | PROC ---
Incision and Drainage Indication/Location: LUQ abdominal wall Risks and Benefits Explained: Yes (need for more drainage s/p I&D) Consent on Chart: No (pt understands and agrees) Betadine cleansed: Yes Anesthesia: 1% Lidocaine w/ Epi (10ml) Blade Size: 15 Irrigated with Normal Saline: No (cavity cleansed with gauze manually) Iodinated Packin/2 in Sterile Dressing Applied: Yes - Remarks Remarks: additional pus evacuated, necrotic fatty tissue present in wound, loculations broken up manually, entire pocket visualized and packed
[2017-05-04] MEDS: VANCOMYCIN 1,250 MG in DEXTROSE 5%-WATER - 250 ML IVPB SCH (19:45)
[2017-05-04] MEDS ORDERED: INSULIN (NOVOLOG) ASPART 100 UNITS/ML 10ML VIAL ONE (23:00)
[2017-05-05] MEDS: VANCOMYCIN 1,250 MG in DEXTROSE 5%-WATER - 250 ML IVPB SCH ×2 (05:44→16:31)
[2017-05-05] MEDS: HYDROmorphone HCL CARPU-JECT 1 MG/1 ML DISP.SYRIN IVPB PRN ×2 (06:18→11:35)
[2017-05-05] MEDS: INSULIN SLIDING SCALE (NOVOLOG) 1 VIAL SQ SCH ×2 (06:25→11:40)
[2017-05-05 07:15] LABS: HEMATOCRIT 36.8 % (32.4-45.2); HEMOGLOBIN 11.5 GM/dL (10.7-15.3); MCHC 31.2 g/dl (32.0-36.0); MEAN CELL VOLUME 83.2 fl (80-96); PLATELET COUNT 370 K/MM3 (134-434); RBC 4.42 M/mm3 (3.60-5.2); RDW 15.6 % (11.6-15.6); WHITE BLOOD COUNT 12.3 K/mm3 (4.0-10.0)
[2017-05-05 08:26] LABS: ANION GAP 8 (8-16); BLOOD UREA NITROGEN 12 mg/dL (7-18); CALCIUM 8.6 mg/dL (8.5-10.1); CHLORIDE 104 mmol/L (98-107); CO2 28 mmol/L (21-32); GLUCOSE,RANDOM 103 mg/dL (74-106); POTASSIUM 4.3 mmol/L (3.5-5.1); SODIUM 140 mmol/L (136-145)
[2017-05-05] MEDS: FUROSEMIDE 40 MG TABLET (FP) PO SCH (11:15)
[2017-05-05] MEDS: DULoxetine HCL 30 MG CAPSULE.DR (FP) PO SCH (11:15)
[2017-05-05] MEDS: VALSARTAN 160 MG TABLET (UD) PO SCH (11:15)
[2017-05-05] MEDS: MONTELUKAST NA 10 MG TABLET PO SCH (11:15)
[2017-05-05] MEDS: CYANOCOBALAMIN 1,000 MCG TABLET (FP) PO SCH (11:16)
[2017-05-05] MEDS: FOLIC ACID 1 MG TABLET (FP) PO SCH (11:16)
[2017-05-05] MEDS: HEPARIN NA (PORCINE) 5,000 UNITS/ML 1ML VIAL SQ SCH ×2 (11:16→22:35)
[2017-05-05] MEDS: PANTOPRAZOLE 40 MG TABLET (FP) PO SCH (11:16)
--- NOTE | 2017-05-05 11:29 | PN ---
Progress Note, Physician History of Present Illness: doing well pain wound --dressing removed quite deep surrounding induration improving - Current Medication List Current Medications: Active Medications Acetaminophen (Tylenol -) 650 mg PO Q6H PRN PRN Reason: PAIN LEVEL 4 - 6 Last Admin: 05/04/17 23:39 Dose: 650 mg Albuterol Sulfate (Ventolin Hfa Inhaler -) 2 puff IH Q4H PRN PRN Reason: SHORT OF BREATH/WHEEZING Bupropion HCl (Wellbutrin Xl -) 300 mg PO DAILY [facility] Last Admin: 05/05/17 11:16 Dose: 300 mg Cyanocobalamin (Vitamin B12 -) 1,000 mcg PO DAILY [facility] Last Admin: 05/05/17 11:16 Dose: 1,000 mcg Diltiazem HCl (Cardizem Cd -) 360 mg PO DAILY [facility] Last Admin: 05/05/17 11:15 Dose: 360 mg Duloxetine HCl (Cymbalta -) 60 mg PO DAILY [facility] Last Admin: 05/05/17 11:15 Dose: 60 mg Ergocalciferol (Drisdol -) 50,000 unit PO Fr@1000 [facility] Folic Acid (Folic Acid -) 1 mg PO DAILY [facility] Last Admin: 05/05/17 11:16 Dose: 1 mg Furosemide (Lasix -) 40 mg PO DAILY [facility] Last Admin: 05/05/17 11:15 Dose: 40 mg Heparin Sodium (Porcine) (Heparin -) 5,000 unit SQ BID [facility] Last Admin: 05/05/17 11:16 Dose: 5,000 unit Hydromorphone HCl (Dilaudid Injection -) 1 mg IVPB Q4H PRN PRN Reason: PAIN LEVEL 6-10 Last Admin: 05/05/17 06:18 Dose: 1 mg Vancomycin HCl 1,250 mg/ (Dextrose) 250 mls @ 166.667 mls/hr IVPB BID@0400, 1600 [facility] PRN Reason: Protocol Last Admin: 05/05/17 05:44 Dose: 166.667 mls/hr Insulin Aspart (Novolog Vial Sliding Scale -) 1 vial SQ ACHS [facility] PRN Reason: Protocol Last Admin: 05/05/17 06:25 Dose: Not Given Lactic Acid (Lac-Hydrin 12) 1 applic TP BID [facility] Last Admin: 05/04/17 23:07 Dose: 1 applic Montelukast Sodium (Singulair -) 10 mg PO DAILY [facility] Last Admin: 05/05/17 11:15 Dose: 10 mg Non-Formulary Medication (Lubiprostone [Amitiza]) 24 mcg PO DAILY [facility] Non-Formulary Medication (Mirabegron [Myrbetriq]) 50 mg PO DAILY [facility] Ondansetron HCl (Zofran Odt -) 4 mg SL Q6H PRN PRN Reason: NAUSEA AND/OR VOMITING Ondansetron HCl (Zofran Injection) 8 mg IVPB Q6H PRN PRN Reason: NAUSEA Last Admin: 05/04/17 14:37 Dose: 8 mg Pantoprazole Sodium (Protonix -) 40 mg PO DAILY [facility] Last Admin: 05/05/17 11:16 Dose: 40 mg Propranolol HCl (Inderal La -) 120 mg PO DAILY [facility] Last Admin: 05/04/17 10:55 Dose: 120 mg Valsartan (Diovan -) 320 mg PO DAILY [facility] Last Admin: 05/05/17 11:15 Dose: 320 mg - Objective Vital Signs: Vital Signs Temperature 98.3 F 05/05/17 08:46 Pulse Rate 85 05/05/17 08:46 Respiratory Rate 18 05/05/17 08:46 Blood Pressure 117/67 05/05/17 08:46 O2 Sat by Pulse Oximetry (%) 97 05/04/17 21:00 Constitutional: Yes: Mild Distress, Obese Cardiovascular: Yes: Regular Rate and Rhythm Respiratory: Yes: Regular, CTA Bilaterally Gastrointestinal: Yes: Normal Bowel Sounds, Soft Musculoskeletal: Yes: WNL Extremities: Yes: WNL Wound/Incision: Yes: Dressing Removed (deep more than about 3-4 cm.surrounding induration,tenderness) Neurological: Yes: Alert, Oriented Psychiatric: Yes: Alert, Oriented Labs: CBC, BMP 05/05/17 06:30 05/05/17 06:30 INR, PTT INR 1.14 (0.82-1.09) 05/03/17 17:52 Assessment/Plan Problem List - Problems (1) Abscess of abdominal wall Code(s): L02.211 - CUTANEOUS ABSCESS OF ABDOMINAL WALL (2) Cellulitis of left abdominal wall Code(s): L03.311 - CELLULITIS OF ABDOMINAL WALL (3) Morbidly obese Code(s): E66.01 - MORBID (SEVERE) OBESITY DUE TO EXCESS CALORIES (4) Diabetes mellitus Code(s): E11.9 - TYPE 2 DIABETES MELLITUS WITHOUT COMPLICATIONS Qualifiers: Diabetes mellitus type: type 2 Diabetes mellitus complication status: with skin complications Diabetes mellitus complication detail: with other skin complication Diabetes mellitus detention insulin use: without bed bug exterminator use Qualified Code(s): E11.628 - Type 2 diabetes mellitus with other skin complications plan continue vanco will add ceftriaxone await for cx report rest as per surgical team
[2017-05-05] MEDS: CEFTRIAXONE 1 G/50 ML PREMIX 50 ML IVPB SCH (11:45)
--- NOTE | 2017-05-05 12:13 | PN ---
Progress Note (short form) - Note Progress Note: Diabetic pt s/p I&D of LUQ abdominal wall abscess with h/o MRSA, cx presumptively MRSA. Resting comfortably in bed. No fever. WBC coming down. Vital Signs Period Temp Pulse Resp BP Sys/Wiley Pulse Ox Last 24 Hr 97.9 F-98.6 F 56-92 18-20 108-126/61-84 97-100 PE: morbidly obese, no distress A&O limbs without rash, no jaundice abdomen obese, soft, few tiny pimple areas improved, small slightly larger site on right lateral abdomen with less erythema and induration, central punctum clean/pink, no active drainage LUQ wound dressing soaked with seropurulent and serosanguineous drainage, removed packing removed, mainly serosang drainage cavity laundry or dry cleaners counter clerk, pink base, minimal necrotic tissue remaining, no active bleeding or purulence expressible still somewhat indurated, erythema ~2cm surrounding wound, tender repacked with 1/2" iodoform, covered with gauze and tape CBC, BMP 05/05/17 06:30 05/05/17 06:30 wbc down Microbiology 05/03/17 Unknown Gram Stain - Final Abscess Wound Culture - Preliminary Presumptive Mrsa (Pbp2a Pos) 05/03/17 18:00 Urine Culture - Final Urine - Urine Clean Catch NO GROWTH OBTAINED 05/03/17 17:40 Blood Culture - Preliminary Blood - Peripheral Venous NO GROWTH OBTAINED AFTER 24 HOURS, INCUBATION TO CONTINUE FOR 4 DAYS. 05/03/17 17:52 Blood Culture - Preliminary Blood - Peripheral Venous NO GROWTH OBTAINED AFTER 24 HOURS, INCUBATION TO CONTINUE FOR 4 DAYS. A/P: POD1 s/p I&D LUQ abdominal wall abscess glucose controlled pain meds prn and for dressing changes wound adequately drained, laundry or dry cleaners counter clerk than yesterday cellulitis receding antibiotics per ID f/u final cultures continue daily wound care - packing changes pt will need VNS on discharge home to continue daily wound care with packing changes, 1/2" iodoform or plain packing, covered with gauze and tape after first couple of changes, pt will be able to shower at home daily with dressing off/packing out, as long as it can be redone shortly after with VNS or family pt will follow up in surgery clinic in 1-2 weeks instructions will be left in d/c plan Problem List - Problems (1) Abscess of abdominal wall Code(s): L02.211 - CUTANEOUS ABSCESS OF ABDOMINAL WALL (2) Cellulitis of left abdominal wall Code(s): L03.311 - CELLULITIS OF ABDOMINAL WALL (3) Morbidly obese Code(s): E66.01 - MORBID (SEVERE) OBESITY DUE TO EXCESS CALORIES (4) Diabetes mellitus Code(s): E11.9 - TYPE 2 DIABETES MELLITUS WITHOUT COMPLICATIONS Qualifiers: Diabetes mellitus type: type 2 Diabetes mellitus complication status: with skin complications Diabetes mellitus complication detail: with other skin complication Diabetes mellitus fdc insulin use: without fdc use Qualified Code(s): E11.628 - Type 2 diabetes mellitus with other skin complications
[2017-05-05] MEDS: AMMONIUM LACTATE 12% LOTION 225 GM BOTTLE TP SCH ×2 (13:46→22:36)
[2017-05-05] MEDS: ACETAMINOPHEN 325 MG TABLET (FP) PO PRN ×2 (16:30→22:43)
[2017-05-05] MEDS: oxyCODONE HCL 5 MG TABLET PO PRN ×2 (16:30→22:39)
--- NOTE | 2017-05-05 19:10 | PN ---
Progress Note, Physician Chief Complaint: Abdominal abscess History of Present Illness: -NAD, lying in bed -wants to go home -Abscess culture presumptive MRSA -on IV abx Vanco -seen by ID and surgery -will need VNS for wound care at home - Current Medication List Current Medications: Active Medications Acetaminophen (Tylenol -) 650 mg PO Q6H PRN PRN Reason: PAIN LEVEL 4 - 6 Last Admin: 05/05/17 16:30 Dose: 650 mg Albuterol Sulfate (Ventolin Hfa Inhaler -) 2 puff IH Q4H PRN PRN Reason: SHORT OF BREATH/WHEEZING Bupropion HCl (Wellbutrin Xl -) 300 mg PO DAILY [facility] Last Admin: 05/05/17 11:16 Dose: 300 mg Cyanocobalamin (Vitamin B12 -) 1,000 mcg PO DAILY [facility] Last Admin: 05/05/17 11:16 Dose: 1,000 mcg Diltiazem HCl (Cardizem Cd -) 360 mg PO DAILY [facility] Last Admin: 05/05/17 11:15 Dose: 360 mg Docusate Sodium (Colace -) 100 mg PO BID [facility] Duloxetine HCl (Cymbalta -) 60 mg PO DAILY [facility] Last Admin: 05/05/17 11:15 Dose: 60 mg Ergocalciferol (Drisdol -) 50,000 unit PO Fr@1000 [facility] Folic Acid (Folic Acid -) 1 mg PO DAILY [facility] Last Admin: 05/05/17 11:16 Dose: 1 mg Furosemide (Lasix -) 40 mg PO DAILY [facility] Last Admin: 05/05/17 11:15 Dose: 40 mg Heparin Sodium (Porcine) (Heparin -) 5,000 unit SQ BID [facility] Last Admin: 05/05/17 11:16 Dose: 5,000 unit Hydromorphone HCl (Dilaudid Injection -) 1 mg IVPB Q4H PRN PRN Reason: PAIN LEVEL 6-10 Last Admin: 05/05/17 11:35 Dose: 1 mg Vancomycin HCl 1,250 mg/ (Dextrose) 250 mls @ 166.667 mls/hr IVPB BID@0400, 1600 [facility] PRN Reason: Protocol Last Admin: 05/05/17 16:31 Dose: 166.667 mls/hr CEFTRIAXONE 1 G/50 ML PREMIX (Ceftriaxone 1 Gm-D5w Bag) 50 mls @ 100 mls/hr IVPB DAILY [facility] Last Admin: 05/05/17 11:45 Dose: 100 mls/hr Lactic Acid (Lac-Hydrin 12) 1 applic TP BID [facility] Last Admin: 05/05/17 13:46 Dose: 1 applic Montelukast Sodium (Singulair -) 10 mg PO DAILY [facility] Last Admin: 05/05/17 11:15 Dose: 10 mg Non-Formulary Medication (Lubiprostone [Amitiza]) 24 mcg PO DAILY [facility] Non-Formulary Medication (Mirabegron [Myrbetriq]) 50 mg PO DAILY [facility] Ondansetron HCl (Zofran Odt -) 4 mg SL Q6H PRN PRN Reason: NAUSEA AND/OR VOMITING Ondansetron HCl (Zofran Injection) 8 mg IVPB Q6H PRN PRN Reason: NAUSEA Last Admin: 05/04/17 14:37 Dose: 8 mg Oxycodone HCl (Roxicodone -) 10 mg PO Q6H PRN PRN Reason: PAIN LEVEL 7 - 10 Last Admin: 05/05/17 16:30 Dose: 10 mg Pantoprazole Sodium (Protonix -) 40 mg PO DAILY [facility] Last Admin: 05/05/17 11:16 Dose: 40 mg Propranolol HCl (Inderal La -) 120 mg PO DAILY [facility] Last Admin: 05/05/17 13:46 Dose: 120 mg Valsartan (Diovan -) 320 mg PO DAILY [facility] Last Admin: 05/05/17 11:15 Dose: 320 mg - Objective Vital Signs: Vital Signs Temperature 97.9 F 05/05/17 14:26 Pulse Rate 69 05/05/17 14:26 Respiratory Rate 20 05/05/17 14:26 Blood Pressure 122/70 05/05/17 14:26 O2 Sat by Pulse Oximetry (%) 97 05/04/17 21:00 Constitutional: Yes: Well Nourished, No Distress, Calm Cardiovascular: Yes: Regular Rate and Rhythm Respiratory: Yes: Regular Gastrointestinal: Yes: Normal Bowel Sounds, Soft, Abdomen, Obese, Tenderness ( incisional) Edema: No Peripheral Pulses WNL: Yes Neurological: Yes: Alert, Oriented Psychiatric: Yes: Alert, Oriented Labs: CBC, BMP 05/05/17 06:30 05/05/17 06:30 INR, PTT INR 1.14 (0.82-1.09) 05/03/17 17:52 Problem List - Problems (1) Abscess of abdominal wall Assessment/Plan: -seen by surgery for I&D -on Vanco -dressing change done by surgery, will need VNS at home Code(s): L02.211 - CUTANEOUS ABSCESS OF ABDOMINAL WALL (2) MRSA (methicillin resistant staph aureus) culture positive Assessment/Plan: -seen by ID -on IV abx Code(s): Z22.322 - CARRIER OR SUSPECTED CARRIER OF METHICILLIN RESIS STAPH Assessment/Plan see problem list DVT/GI prophylaxis self ambulatory
[2017-05-05] MEDS: DOCUSATE SODIUM 100 MG CAPSULE (FP) PO SCH (22:35)
[2017-05-06] MEDS: oxyCODONE HCL 5 MG TABLET PO PRN ×3 (05:09→17:05)
[2017-05-06] MEDS: ACETAMINOPHEN 325 MG TABLET (FP) PO PRN ×3 (05:09→17:06)
[2017-05-06] MEDS: VANCOMYCIN 1,250 MG in DEXTROSE 5%-WATER - 250 ML IVPB SCH ×2 (05:09→17:07)
[2017-05-06] MEDS: VALSARTAN 160 MG TABLET (UD) PO SCH (10:45)
[2017-05-06] MEDS: FUROSEMIDE 40 MG TABLET (FP) PO SCH (10:45)
[2017-05-06] MEDS: DOCUSATE SODIUM 100 MG CAPSULE (FP) PO SCH ×2 (10:45→22:16)
[2017-05-06] MEDS: HEPARIN NA (PORCINE) 5,000 UNITS/ML 1ML VIAL SQ SCH ×2 (10:45→22:16)
[2017-05-06] MEDS: DULoxetine HCL 30 MG CAPSULE.DR (FP) PO SCH (10:45)
[2017-05-06] MEDS: CEFTRIAXONE 1 G/50 ML PREMIX 50 ML IVPB SCH (10:45)
[2017-05-06] MEDS: CYANOCOBALAMIN 1,000 MCG TABLET (FP) PO SCH (10:45)
[2017-05-06] MEDS: MONTELUKAST NA 10 MG TABLET PO SCH (10:45)
[2017-05-06] MEDS: FOLIC ACID 1 MG TABLET (FP) PO SCH (10:45)
[2017-05-06] MEDS: PANTOPRAZOLE 40 MG TABLET (FP) PO SCH (10:45)
--- NOTE | 2017-05-06 11:07 | PN ---
Progress Note, Physician Chief Complaint: Abdominal abscess History of Present Illness: -NAD, lying in bed -wants to go home -Abscess culture presumptive MRSA -on IV abx -seen by ID and surgery - Current Medication List Current Medications: Active Medications Acetaminophen (Tylenol -) 650 mg PO Q6H PRN PRN Reason: PAIN LEVEL 4 - 6 Last Admin: 05/06/17 05:09 Dose: 650 mg Albuterol Sulfate (Ventolin Hfa Inhaler -) 2 puff IH Q4H PRN PRN Reason: SHORT OF BREATH/WHEEZING Bupropion HCl (Wellbutrin Xl -) 300 mg PO DAILY REPLACED BY [facility] Last Admin: 05/05/17 11:16 Dose: 300 mg Cyanocobalamin (Vitamin B12 -) 1,000 mcg PO DAILY REPLACED BY [facility] Last Admin: 05/05/17 11:16 Dose: 1,000 mcg Diltiazem HCl (Cardizem Cd -) 360 mg PO DAILY REPLACED BY [facility] Last Admin: 05/05/17 11:15 Dose: 360 mg Docusate Sodium (Colace -) 100 mg PO BID REPLACED BY [facility] Last Admin: 05/05/17 22:35 Dose: 100 mg Duloxetine HCl (Cymbalta -) 60 mg PO DAILY REPLACED BY [facility] Last Admin: 05/05/17 11:15 Dose: 60 mg Ergocalciferol (Drisdol -) 50,000 unit PO Fr@1000 REPLACED BY [facility] Folic Acid (Folic Acid -) 1 mg PO DAILY REPLACED BY [facility] Last Admin: 05/05/17 11:16 Dose: 1 mg Furosemide (Lasix -) 40 mg PO DAILY REPLACED BY [facility] Last Admin: 05/05/17 11:15 Dose: 40 mg Heparin Sodium (Porcine) (Heparin -) 5,000 unit SQ BID REPLACED BY [facility] Last Admin: 05/05/17 22:35 Dose: 5,000 unit Hydromorphone HCl (Dilaudid Injection -) 1 mg IVPB Q4H PRN PRN Reason: PAIN LEVEL 6-10 Last Admin: 05/05/17 11:35 Dose: 1 mg Vancomycin HCl 1,250 mg/ (Dextrose) 250 mls @ 166.667 mls/hr IVPB BID@0400, 1600 [facility] PRN Reason: Protocol Last Admin: 05/06/17 05:09 Dose: 166.667 mls/hr CEFTRIAXONE 1 G/50 ML PREMIX (Ceftriaxone 1 Gm-D5w Bag) 50 mls @ 100 mls/hr IVPB DAILY REPLACED BY [facility] Last Admin: 05/05/17 11:45 Dose: 100 mls/hr Lactic Acid (Lac-Hydrin 12) 1 applic TP BID REPLACED BY [facility] Last Admin: 05/05/17 22:36 Dose: 1 applic Montelukast Sodium (Singulair -) 10 mg PO DAILY REPLACED BY [facility] Last Admin: 05/05/17 11:15 Dose: 10 mg Non-Formulary Medication (Lubiprostone [Amitiza]) 24 mcg PO DAILY REPLACED BY [facility] Non-Formulary Medication (Mirabegron [Myrbetriq]) 50 mg PO DAILY REPLACED BY [facility] Ondansetron HCl (Zofran Odt -) 4 mg SL Q6H PRN PRN Reason: NAUSEA AND/OR VOMITING Ondansetron HCl (Zofran Injection) 8 mg IVPB Q6H PRN PRN Reason: NAUSEA Last Admin: 05/04/17 14:37 Dose: 8 mg Oxycodone HCl (Roxicodone -) 10 mg PO Q6H PRN PRN Reason: PAIN LEVEL 7 - 10 Last Admin: 05/06/17 05:09 Dose: 10 mg Pantoprazole Sodium (Protonix -) 40 mg PO DAILY REPLACED BY [facility] Last Admin: 05/05/17 11:16 Dose: 40 mg Propranolol HCl (Inderal La -) 120 mg PO DAILY REPLACED BY [facility] Last Admin: 05/05/17 13:46 Dose: 120 mg Valsartan (Diovan -) 320 mg PO DAILY REPLACED BY [facility] Last Admin: 05/05/17 11:15 Dose: 320 mg - Objective Vital Signs: Vital Signs Temperature 98.3 F 05/06/17 06:00 Pulse Rate 56 L 05/06/17 06:00 Respiratory Rate 20 05/06/17 06:00 Blood Pressure 147/75 05/06/17 06:00 O2 Sat by Pulse Oximetry (%) 96 05/05/17 21:00 Constitutional: Yes: Well Nourished, No Distress, Calm Cardiovascular: Yes: Regular Rate and Rhythm Respiratory: Yes: Regular Gastrointestinal: Yes: Normal Bowel Sounds, Soft, Abdomen, Obese Musculoskeletal: Yes: WNL Extremities: Yes: WNL Edema: No Peripheral Pulses WNL: Yes Wound/Incision: Yes: Dressing Dry and Intact, Other (right UQ mid-axillary and LUQ superficial absecc intact) Neurological: Yes: Alert, Oriented Psychiatric: Yes: Alert, Oriented Labs: CBC, BMP 05/05/17 06:30 05/05/17 06:30 INR, PTT INR 1.14 (0.82-1.09) 05/03/17 17:52 Problem List - Problems (1) Abscess of abdominal wall Assessment/Plan: -seen by surgery for I&D -on IV abx -dressing change done by surgery, will need VNS at home Code(s): L02.211 - CUTANEOUS ABSCESS OF ABDOMINAL WALL (2) MRSA (methicillin resistant staph aureus) culture positive Assessment/Plan: -seen by ID -on IV abx Code(s): Z22.322 - CARRIER OR SUSPECTED CARRIER OF METHICILLIN RESIS STAPH Assessment/Plan see problem list. self ambulatory GI prophylaxis DVT prophylaxis Pain management
[2017-05-06] MEDS: AMMONIUM LACTATE 12% LOTION 225 GM BOTTLE TP SCH ×2 (11:37→22:16)
[2017-05-06] MEDS ORDERED: PNEUMOC 13-VAL CONJ-DIP CRM/PF 0.5 ML DISP.SYRIN IM ONE (11:48)
--- NOTE | 2017-05-06 14:11 | PN ---
Progress Note, Physician History of Present Illness: stable c/o of pain at the operated site - Current Medication List Current Medications: Active Medications Acetaminophen (Tylenol -) 650 mg PO Q6H PRN PRN Reason: PAIN LEVEL 4 - 6 Last Admin: 05/06/17 11:32 Dose: 650 mg Albuterol Sulfate (Ventolin Hfa Inhaler -) 2 puff IH Q4H PRN PRN Reason: SHORT OF BREATH/WHEEZING Bupropion HCl (Wellbutrin Xl -) 300 mg PO DAILY [facility] Last Admin: 05/06/17 10:45 Dose: 300 mg Cyanocobalamin (Vitamin B12 -) 1,000 mcg PO DAILY [facility] Last Admin: 05/06/17 10:45 Dose: 1,000 mcg Diltiazem HCl (Cardizem Cd -) 360 mg PO DAILY [facility] Last Admin: 05/06/17 10:45 Dose: 360 mg Docusate Sodium (Colace -) 100 mg PO BID [facility] Last Admin: 05/06/17 10:45 Dose: 100 mg Duloxetine HCl (Cymbalta -) 60 mg PO DAILY [facility] Last Admin: 05/06/17 10:45 Dose: 60 mg Ergocalciferol (Drisdol -) 50,000 unit PO Fr@1000 [facility] Folic Acid (Folic Acid -) 1 mg PO DAILY [facility] Last Admin: 05/06/17 10:45 Dose: 1 mg Furosemide (Lasix -) 40 mg PO DAILY [facility] Last Admin: 05/06/17 10:45 Dose: 40 mg Heparin Sodium (Porcine) (Heparin -) 5,000 unit SQ BID [facility] Last Admin: 05/06/17 10:45 Dose: 5,000 unit Hydromorphone HCl (Dilaudid Injection -) 1 mg IVPB Q4H PRN PRN Reason: PAIN LEVEL 6-10 Last Admin: 05/05/17 11:35 Dose: 1 mg Vancomycin HCl 1,250 mg/ (Dextrose) 250 mls @ 166.667 mls/hr IVPB BID@0400, 1600 [facility] PRN Reason: Protocol Last Admin: 05/06/17 05:09 Dose: 166.667 mls/hr CEFTRIAXONE 1 G/50 ML PREMIX (Ceftriaxone 1 Gm-D5w Bag) 50 mls @ 100 mls/hr IVPB DAILY [facility] Last Admin: 05/06/17 10:45 Dose: 100 mls/hr Lactic Acid (Lac-Hydrin 12) 1 applic TP BID [facility] Last Admin: 05/06/17 11:37 Dose: 1 applic Montelukast Sodium (Singulair -) 10 mg PO DAILY [facility] Last Admin: 05/06/17 10:45 Dose: 10 mg Non-Formulary Medication (Lubiprostone [Amitiza]) 24 mcg PO DAILY [facility] Non-Formulary Medication (Mirabegron [Myrbetriq]) 50 mg PO DAILY [facility] Ondansetron HCl (Zofran Odt -) 4 mg SL Q6H PRN PRN Reason: NAUSEA AND/OR VOMITING Ondansetron HCl (Zofran Injection) 8 mg IVPB Q6H PRN PRN Reason: NAUSEA Last Admin: 05/04/17 14:37 Dose: 8 mg Oxycodone HCl (Roxicodone -) 10 mg PO Q6H PRN PRN Reason: PAIN LEVEL 7 - 10 Last Admin: 05/06/17 11:31 Dose: 10 mg Pantoprazole Sodium (Protonix -) 40 mg PO DAILY [facility] Last Admin: 05/06/17 10:45 Dose: 40 mg Pneumococcal 13-Valent Conj Vacc (Prevnar 13 Syringe -) 0.5 ml IM .ONCE ONE Stop: 05/06/17 11:49 Propranolol HCl (Inderal La -) 120 mg PO DAILY [facility] Last Admin: 05/06/17 11:37 Dose: 120 mg Valsartan (Diovan -) 320 mg PO DAILY [facility] Last Admin: 05/06/17 10:45 Dose: 320 mg - Objective Vital Signs: Vital Signs Temperature 98.2 F 05/06/17 11:44 Pulse Rate 68 05/06/17 11:44 Respiratory Rate 20 05/06/17 11:44 Blood Pressure 143/94 05/06/17 11:44 O2 Sat by Pulse Oximetry (%) 96 05/05/17 21:00 Constitutional: Yes: No Distress, Calm Cardiovascular: Yes: Regular Rate and Rhythm Respiratory: Yes: Regular, CTA Bilaterally Gastrointestinal: Yes: Normal Bowel Sounds, Soft Musculoskeletal: Yes: WNL Extremities: Yes: WNL Wound/Incision: Yes: Dressing Dry and Intact Neurological: Yes: Alert, Oriented Psychiatric: Yes: Alert, Oriented Labs: CBC, BMP 05/05/17 06:30 05/05/17 06:30 INR, PTT INR 1.14 (0.82-1.09) 05/03/17 17:52 Assessment/Plan Problem List - Problems (1) Abscess of abdominal wall Code(s): L02.211 - CUTANEOUS ABSCESS OF ABDOMINAL WALL (2) Cellulitis of left abdominal wall Code(s): L03.311 - CELLULITIS OF ABDOMINAL WALL (3) Morbidly obese Code(s): E66.01 - MORBID (SEVERE) OBESITY DUE TO EXCESS CALORIES (4) Diabetes mellitus Code(s): E11.9 - TYPE 2 DIABETES MELLITUS WITHOUT COMPLICATIONS Qualifiers: Diabetes mellitus type: type 2 Diabetes mellitus complication status: with skin complications Diabetes mellitus complication detail: with other skin complication Diabetes mellitus buttermaker insulin use: without residential use Qualified Code(s): E11.628 - Type 2 diabetes mellitus with other skin complications plan continue vanco will stop ceftriaxone check vanco level rest as per primary team
[2017-05-06] MEDS ORDERED: PNEUMOCOCCAL 23 VACCINE 0.5 ML VIAL IM ONE (16:45)
[2017-05-06] MEDS: HYDROmorphone HCL CARPU-JECT 1 MG/1 ML DISP.SYRIN IVPB PRN (18:42)
--- NOTE | 2017-05-06 18:58 | PN ---
Progress Note (short form) - Note Progress Note: Diabetic pt s/p I&D of LUQ abdominal wall abscess with culture growing MRSA. Resting comfortably in bed. No fever. WBC coming down. Vital Signs Period Temp Pulse Resp BP Sys/Wiley Pulse Ox Last 24 Hr 97.6 F-98.3 F 56-68 20-20 102-147/57-94 96 PE: morbidly obese, no distress A&O limbs without rash, no jaundice abdomen obese, soft, small lesion on right lateral abdomen with focal erythema and induration, coming to a pustular head, no active drainage LUQ wound dressing and packing with small amt of mostly serosanguineous drainage , removed cavity with pink base and some yellow still on hines, no active bleeding or purulence expressible, irregular cavity less indurated, erythema faded to mild hyperpigmentation, locally tender repacked with 1/2" iodoform, covered with gauze and tape Microbiology 05/03/17 17:40 Blood Culture - Preliminary Blood - Peripheral Venous NO GROWTH OBTAINED AFTER 72 HOURS, INCUBATION TO CONTINUE FOR 2 DAYS. 05/03/17 17:52 Blood Culture - Preliminary Blood - Peripheral Venous NO GROWTH OBTAINED AFTER 72 HOURS, INCUBATION TO CONTINUE FOR 2 DAYS. 05/03/17 Unknown Gram Stain - Final Abscess Wound Culture - Final Mr S Aureus no other new labs today A/P: POD2 s/p I&D LUQ abdominal wall abscess pain meds prn and for dressing changes wound adequately drained cellulitis resolving MRSA on antibiotics per ID R abdominal lesion coming to small pustular head but no drainage at this time continue daily wound care - packing changes will switch to plain packing tomorrow as iodoform stings and wound is cleaning up pt will need VNS on discharge home to continue daily wound care with packing changes, 1/2" plain packing, covered with gauze and tape after first couple of changes, pt will be able to shower at home daily with dressing off/packing out, as long as it can be redone shortly after with VNS or family pt will follow up in surgery clinic in 1-2 weeks instructions will be left in d/c plan Problem List - Problems (1) Abscess of abdominal wall Code(s): L02.211 - CUTANEOUS ABSCESS OF ABDOMINAL WALL (2) Cellulitis of left abdominal wall Code(s): L03.311 - CELLULITIS OF ABDOMINAL WALL (3) Morbidly obese Code(s): E66.01 - MORBID (SEVERE) OBESITY DUE TO EXCESS CALORIES (4) Diabetes mellitus Code(s): E11.9 - TYPE 2 DIABETES MELLITUS WITHOUT COMPLICATIONS Qualifiers: Diabetes mellitus type: type 2 Diabetes mellitus complication status: with skin complications Diabetes mellitus complication detail: with other skin complication Diabetes mellitus termination clerk insulin use: without care home use Qualified Code(s): E11.628 - Type 2 diabetes mellitus with other skin complications
[2017-05-06] MEDS ORDERED: ALBUTEROL SO4 0.083% IH SOL 2.5 MG/3 ML VIAL.NEB. NEB ONE (22:06)
--- NOTE | 2017-05-06 23:06 | HOSP ---
Subjective - Review of Symptoms Events since last encounter: Hospitalist Encounter Notified by primary RN, that the patient reports SOB. Arrived to bedside, patient is alert, awake and oriented. She reports being SOB at rest, denies CP, or palpitations. Scattered diffuse wheeze to R- lobes. Subjective: A 51-year-old [id number] diabetic woman with multiple abscesses on abdomen. s/p I&D of LUQ abdominal wall abscess with culture growing MRSA POD #0 P Stat portable chest xray Duoneb x1 now Incentive Spirometer Will continue to monitor overnight RN to update PMD in am Pulmonary: Yes: Other (SOB) Physical Examination Vital Signs: Vital Signs Temperature 98.2 F 05/06/17 21:44 Pulse Rate 54 L 05/06/17 21:44 Respiratory Rate 20 05/06/17 21:44 Blood Pressure 133/76 05/06/17 21:44 O2 Sat by Pulse Oximetry (%) 96 05/06/17 09:00 Constitutional: Yes: Diaphoresis, Mild Distress, Obese Eyes: Yes: WNL, Conjunctiva Clear, EOM Intact, PERRL HENT: Yes: WNL, Atraumatic, Normocephalic Neck: Yes: WNL, Supple, Trachea Midline Cardiovascular: Yes: WNL, Regular Rate and Rhythm, S1, S2 Respiratory: Yes: Rhonchi, SOB, Wheezes Gastrointestinal: Yes: Abdomen, Obese, Tenderness (abscess to LUQ) Musculoskeletal: Yes: WNL Extremities: Yes: WNL Peripheral Pulses WNL: Yes Integumentary: Yes: WNL Wound/Incision: Yes: Dressing Dry and Intact (with packing to LUQ) Neurological: Yes: WNL, Alert, Oriented ...Motor Strength: WNL Psychiatric: Yes: WNL, Alert, Oriented Labs: CBC, BMP 05/05/17 06:30 05/05/17 06:30 Laboratory Results - last 24 hr 05/06/17 05/06/17 19:24 21:58 POC Glucometer 112 103 Intake & Output 05/03/17 05/04/17 05/05/17 05/06/17 23:59 23:59 23:59 23:59 Intake Total 350 1300 990 Balance 350 1300 990 Weight 143.335 kg 145.603 kg 144.044 kg 144.106 kg Current Medications Generic Name Dose Route Start Last Admin Trade Name Freq PRN Reason Stop Dose Admin Acetaminophen 650 mg 05/04/17 05:51 05/06/17 17:06 Tylenol - PO 650 mg Q6H PRN Administration PAIN LEVEL 4 - 6 Albuterol Sulfate 2 puff 05/03/17 20:16 Ventolin Hfa Inhaler - IH Q4H PRN SHORT OF BREATH/WHEEZING Bupropion HCl 300 mg 05/04/17 10:00 05/06/17 10:45 Wellbutrin Xl - PO 300 mg DAILY [facility] Administration Cyanocobalamin 1,000 mcg 05/04/17 10:00 05/06/17 10:45 Vitamin B12 - PO 1,000 mcg DAILY [facility] Administration Diltiazem HCl 360 mg 05/04/17 10:00 05/06/17 10:45 Cardizem Cd - PO 360 mg DAILY [facility] Administration Docusate Sodium 100 mg 05/05/17 22:00 05/06/17 22:16 Colace - PO 100 mg BID [facility] Administration Duloxetine HCl 60 mg 05/04/17 10:00 05/06/17 10:45 Cymbalta - PO 60 mg DAILY [facility] Administration Ergocalciferol 50,000 unit 05/09/17 10:00 Drisdol - PO Fr@1000 [facility] Folic Acid 1 mg 05/04/17 10:00 05/06/17 10:45 Folic Acid - PO 1 mg DAILY [facility] Administration Furosemide 40 mg 05/04/17 10:00 05/06/17 10:45 Lasix - PO 40 mg DAILY [facility] Administration Heparin Sodium (Porcine) 5,000 unit 05/03/17 22:00 05/06/17 22:16 Heparin - SQ 5,000 unit BID [facility] Administration Hydromorphone HCl 1 mg 05/04/17 14:17 05/06/17 18:42 Dilaudid Injection - IVPB 1 mg Q4H PRN Administration PAIN LEVEL 6-10 Vancomycin HCl 1,250 mg/ 250 mls @ 166.667 mls/hr 05/04/17 16:00 05/06/17 17: 07 Dextrose IVPB 166.667 mls/hr BID@0400,1600 [facility] Administration Protocol Lactic Acid 1 applic 05/03/17 22:00 05/06/17 22:16 Lac-Hydrin 12 TP 1 applic BID [facility] Administration Montelukast Sodium 10 mg 05/04/17 10:00 02/06/18 10:45 Singulair - PO 10 mg DAILY [facility] Administration Non-Formulary Medication 24 mcg 05/04/17 10:00 Lubiprostone [Amitiza] PO DAILY [facility] Non-Formulary Medication 50 mg 05/04/17 10:00 Mirabegron [Myrbetriq] PO DAILY [facility] Ondansetron HCl 4 mg 05/04/17 14:17 Zofran Odt - SL Q6H PRN NAUSEA AND/OR VOMITING Ondansetron HCl 8 mg 05/04/17 14:17 05/04/17 14:37 Zofran Injection IVPB 8 mg Q6H PRN Administration NAUSEA Oxycodone HCl 10 mg 05/05/17 12:17 05/06/17 17:05 Roxicodone - PO 10 mg Q6H PRN Administration PAIN LEVEL 7 - 10 Pantoprazole Sodium 40 mg 05/04/17 10:00 05/06/17 10:45 Protonix - PO 40 mg DAILY [facility] Administration Propranolol HCl 120 mg 05/04/17 10:00 05/06/17 11:37 Inderal La - PO 120 mg DAILY [facility] Administration Valsartan 320 mg 05/04/17 10:00 05/06/17 10:45 Diovan - PO 320 mg DAILY [facility] Administration
[2017-05-07] MEDS: VANCOMYCIN 1,250 MG in DEXTROSE 5%-WATER - 250 ML IVPB SCH ×2 (05:08→16:57)
[2017-05-07 08:18] LABS: ALBUMIN 2.9 g/dl (3.4-5.0); ALK PHOS 100 U/L (45-117); ANION GAP 8 (8-16); BILIRUBIN,TOTAL 0.3 mg/dL (0.2-1.0); BLOOD UREA NITROGEN 13 mg/dL (7-18); CALCIUM 8.6 mg/dL (8.5-10.1); CHLORIDE 102 mmol/L (98-107); CO2 31 mmol/L (21-32); CREATININE 1.2 mg/dL (0.55-1.02); GLUCOSE,RANDOM 86 mg/dL (74-106); SGOT/AST 16 U/L (15-37); SGPT/ALT 23 U/L (12-78); SODIUM 141 mmol/L (136-145); TOT PROT 6.9 g/dl (6.4-8.2)
[2017-05-07 08:20] LABS: BASO % 0.5 % (0-2.0); EOS % 1.8 % (0-4.5); HEMATOCRIT 38.6 % (32.4-45.2); LYMPH % 25.5 % (8-40); MCH 25.9 pg (25.7-33.7); MCHC 31.2 g/dl (32.0-36.0); MEAN CELL VOLUME 83.3 fl (80-96); MEAN PLT VOLUME 8.8 fl (7.5-11.1); MONO % 11.8 % (3.8-10.2); NEUT % 60.4 % (42.8-82.8); PLATELET COUNT 370 K/MM3 (134-434); RBC 4.63 M/mm3 (3.60-5.2); RDW 15.4 % (11.6-15.6); WHITE BLOOD COUNT 10.4 K/mm3 (4.0-10.0)
[2017-05-07] MEDS ORDERED: PT OWN MED DRAWER 7, Y5N ONE (10:10)
[2017-05-07] MEDS: MONTELUKAST NA 10 MG TABLET PO SCH (10:45)
[2017-05-07] MEDS: VALSARTAN 160 MG TABLET (UD) PO SCH (10:45)
[2017-05-07] MEDS: DULoxetine HCL 30 MG CAPSULE.DR (FP) PO SCH (10:46)
[2017-05-07] MEDS: FUROSEMIDE 40 MG TABLET (FP) PO SCH (10:46)
[2017-05-07] MEDS: DOCUSATE SODIUM 100 MG CAPSULE (FP) PO SCH (10:46)
[2017-05-07] MEDS: CYANOCOBALAMIN 1,000 MCG TABLET (FP) PO SCH (10:46)
[2017-05-07] MEDS ORDERED: ALBUTEROL SO4 0.083% IH SOL 2.5 MG/3 ML VIAL.NEB. NEB PRN (10:46)
[2017-05-07] MEDS: HEPARIN NA (PORCINE) 5,000 UNITS/ML 1ML VIAL SQ SCH ×2 (10:47→22:54)
[2017-05-07] MEDS: FOLIC ACID 1 MG TABLET (FP) PO SCH (10:47)
[2017-05-07] MEDS: PANTOPRAZOLE 40 MG TABLET (FP) PO SCH (10:47)
[2017-05-07] MEDS: AMMONIUM LACTATE 12% LOTION 225 GM BOTTLE TP SCH ×2 (10:49→22:57)
--- NOTE | 2017-05-07 11:02 | PN ---
Progress Note, Physician Chief Complaint: Abdominal abscess History of Present Illness: -NAD, lying in bed -wants to go home -Abscess culture presumptive MRSA -on IV abx Vanco day 4 -seen by ID and surgery -will need VNS for wound care at home -overnight events noted, CXR negative -pt has hx of asthma, started on neb tx, with improvement in SOB -dilaudid discontinued, will continued PO oxycodone -no BM past 5 days, has been on colace, started on senna - Current Medication List Current Medications: Active Medications Acetaminophen (Tylenol -) 650 mg PO Q6H PRN PRN Reason: PAIN LEVEL 4 - 6 Last Admin: 05/06/17 17:06 Dose: 650 mg Albuterol Sulfate (Ventolin 0.083% Nebulizer Soln -) 1 amp NEB Q4H PRN PRN Reason: SHORT OF BREATH/WHEEZING Albuterol/Ipratropium (Duoneb -) 1 amp NEB TID [facility] Bupropion HCl (Wellbutrin Xl -) 300 mg PO DAILY [facility] Last Admin: 05/06/17 10:45 Dose: 300 mg Cyanocobalamin (Vitamin B12 -) 1,000 mcg PO DAILY [facility] Last Admin: 05/06/17 10:45 Dose: 1,000 mcg Diltiazem HCl (Cardizem Cd -) 360 mg PO DAILY [facility] Last Admin: 05/06/17 10:45 Dose: 360 mg Duloxetine HCl (Cymbalta -) 60 mg PO DAILY [facility] Last Admin: 05/06/17 10:45 Dose: 60 mg Ergocalciferol (Drisdol -) 50,000 unit PO Fr@1000 [facility] Folic Acid (Folic Acid -) 1 mg PO DAILY [facility] Last Admin: 05/06/17 10:45 Dose: 1 mg Furosemide (Lasix -) 40 mg PO DAILY [facility] Last Admin: 05/06/17 10:45 Dose: 40 mg Heparin Sodium (Porcine) (Heparin -) 5,000 unit SQ BID [facility] Last Admin: 05/06/17 22:16 Dose: 5,000 unit Vancomycin HCl 1,250 mg/ (Dextrose) 250 mls @ 166.667 mls/hr IVPB BID@0400, 1600 [facility] PRN Reason: Protocol Last Admin: 05/07/17 05:08 Dose: 166.667 mls/hr Lactic Acid (Lac-Hydrin 12) 1 applic TP BID [facility] Last Admin: 05/06/17 22:16 Dose: 1 applic Montelukast Sodium (Singulair -) 10 mg PO DAILY [facility] Last Admin: 05/06/17 10:45 Dose: 10 mg Non-Formulary Medication (Lubiprostone [Amitiza]) 24 mcg PO DAILY [facility] Non-Formulary Medication (Mirabegron [Myrbetriq]) 50 mg PO DAILY [facility] Ondansetron HCl (Zofran Odt -) 4 mg SL Q6H PRN PRN Reason: NAUSEA AND/OR VOMITING Ondansetron HCl (Zofran Injection) 8 mg IVPB Q6H PRN PRN Reason: NAUSEA Last Admin: 05/04/17 14:37 Dose: 8 mg Oxycodone HCl (Roxicodone -) 10 mg PO Q6H PRN PRN Reason: PAIN LEVEL 7 - 10 Last Admin: 05/06/17 17:05 Dose: 10 mg Pantoprazole Sodium (Protonix -) 40 mg PO DAILY [facility] Last Admin: 05/06/17 10:45 Dose: 40 mg Propranolol HCl (Inderal La -) 120 mg PO DAILY [facility] Last Admin: 05/06/17 11:37 Dose: 120 mg Senna (Senna -) 1 tab PO [facility] Valsartan (Diovan -) 320 mg PO DAILY [facility] Last Admin: 05/06/17 10:45 Dose: 320 mg - Objective Vital Signs: Vital Signs Temperature 97.9 F 05/07/17 05:02 Pulse Rate 51 L 05/07/17 05:02 Respiratory Rate 20 05/07/17 05:02 Blood Pressure 117/66 05/07/17 05:02 O2 Sat by Pulse Oximetry (%) 97 05/06/17 21:00 Constitutional: Yes: Well Nourished, No Distress, Calm Cardiovascular: Yes: Regular Rate and Rhythm Respiratory: Yes: Regular Gastrointestinal: Yes: Normal Bowel Sounds, Soft, Abdomen, Obese Musculoskeletal: Yes: WNL Extremities: Yes: WNL Edema: No Peripheral Pulses WNL: Yes Neurological: Yes: Alert, Oriented Psychiatric: Yes: Alert, Oriented Labs: CBC, BMP 05/07/17 06:00 05/07/17 06:00 INR, PTT INR 1.14 (0.82-1.09) 05/03/17 17:52 Problem List - Problems (1) MRSA (methicillin resistant staph aureus) culture positive Assessment/Plan: -seen by ID -on IV abx Code(s): Z22.322 - CARRIER OR SUSPECTED CARRIER OF METHICILLIN RESIS STAPH (2) Abscess of abdominal wall Assessment/Plan: -seen by surgery for I&D -on Vanco -dressing change done by surgery, will need VNS at home Code(s): L02.211 - CUTANEOUS ABSCESS OF ABDOMINAL WALL (3) Asthma Assessment/Plan: -bronchodilators -CXR negative Code(s): J45.909 - UNSPECIFIED ASTHMA, UNCOMPLICATED (4) Morbidly obese Code(s): E66.01 - MORBID (SEVERE) OBESITY DUE TO EXCESS CALORIES Assessment/Plan see problem list.
--- NOTE | 2017-05-07 14:49 | PN ---
Progress Note, Physician History of Present Illness: stable pain still present c/o f pain which is on the rt side boil events nted of patient being sob yesterday - Current Medication List Current Medications: Active Medications Acetaminophen (Tylenol -) 650 mg PO Q6H PRN PRN Reason: PAIN LEVEL 4 - 6 Last Admin: 05/06/17 17:06 Dose: 650 mg Albuterol Sulfate (Ventolin 0.083% Nebulizer Soln -) 1 amp NEB Q4H PRN PRN Reason: SHORT OF BREATH/WHEEZING Albuterol/Ipratropium (Duoneb -) 1 amp NEB RTID [facility] Bupropion HCl (Wellbutrin Xl -) 300 mg PO DAILY [facility] Last Admin: 05/07/17 10:47 Dose: 300 mg Cyanocobalamin (Vitamin B12 -) 1,000 mcg PO DAILY [facility] Last Admin: 05/07/17 10:46 Dose: 1,000 mcg Diltiazem HCl (Cardizem Cd -) 360 mg PO DAILY [facility] Last Admin: 05/07/17 10:46 Dose: 360 mg Duloxetine HCl (Cymbalta -) 60 mg PO DAILY [facility] Last Admin: 05/07/17 10:46 Dose: 60 mg Ergocalciferol (Drisdol -) 50,000 unit PO Fr@1000 [facility] Folic Acid (Folic Acid -) 1 mg PO DAILY [facility] Last Admin: 05/07/17 10:47 Dose: 1 mg Furosemide (Lasix -) 40 mg PO DAILY [facility] Last Admin: 05/07/17 10:46 Dose: 40 mg Heparin Sodium (Porcine) (Heparin -) 5,000 unit SQ BID [facility] Last Admin: 05/07/17 10:47 Dose: 5,000 unit Vancomycin HCl 1,250 mg/ (Dextrose) 250 mls @ 166.667 mls/hr IVPB BID@0400, 1600 [facility] PRN Reason: Protocol Last Admin: 05/07/17 05:08 Dose: 166.667 mls/hr Lactic Acid (Lac-Hydrin 12) 1 applic TP BID [facility] Last Admin: 05/07/17 10:49 Dose: Not Given Montelukast Sodium (Singulair -) 10 mg PO DAILY [facility] Last Admin: 05/07/17 10:45 Dose: 10 mg Non-Formulary Medication (Lubiprostone [Amitiza]) 24 mcg PO DAILY [facility] Non-Formulary Medication (Mirabegron [Myrbetriq]) 50 mg PO DAILY [facility] Ondansetron HCl (Zofran Odt -) 4 mg SL Q6H PRN PRN Reason: NAUSEA AND/OR VOMITING Ondansetron HCl (Zofran Injection) 8 mg IVPB Q6H PRN PRN Reason: NAUSEA Last Admin: 05/04/17 14:37 Dose: 8 mg Oxycodone HCl (Roxicodone -) 10 mg PO Q6H PRN PRN Reason: PAIN LEVEL 7 - 10 Last Admin: 05/06/17 17:05 Dose: 10 mg Pantoprazole Sodium (Protonix -) 40 mg PO DAILY [facility] Last Admin: 05/07/17 10:47 Dose: 40 mg Propranolol HCl (Inderal La -) 120 mg PO DAILY [facility] Last Admin: 05/07/17 10:48 Dose: 120 mg Senna (Senna -) 1 tab PO [facility] Valsartan (Diovan -) 320 mg PO DAILY [facility] Last Admin: 05/07/17 10:45 Dose: 320 mg - Objective Vital Signs: Vital Signs Temperature 98.2 F 05/07/17 13:33 Pulse Rate 60 05/07/17 13:33 Respiratory Rate 20 05/07/17 13:33 Blood Pressure 114/75 05/07/17 13:33 O2 Sat by Pulse Oximetry (%) 97 05/06/17 21:00 Constitutional: Yes: No Distress, Calm, Obese Cardiovascular: Yes: Regular Rate and Rhythm Respiratory: Yes: Regular, CTA Bilaterally, On Nasal O2 Gastrointestinal: Yes: Normal Bowel Sounds, Soft Musculoskeletal: Yes: WNL Extremities: Yes: WNL Integumentary: Yes: Other (small boil on the rt side of the abd--tender) Wound/Incision: Yes: Dressing Dry and Intact Neurological: Yes: Alert, Oriented Psychiatric: Yes: Alert, Oriented Labs: CBC, BMP 05/07/17 06:00 05/07/17 06:00 INR, PTT INR 1.14 (0.82-1.09) 05/03/17 17:52 Assessment/Plan Problem List - Problems (1) Abscess of abdominal wall Code(s): L02.211 - CUTANEOUS ABSCESS OF ABDOMINAL WALL (2) Cellulitis of left abdominal wall Code(s): L03.311 - CELLULITIS OF ABDOMINAL WALL (3) Morbidly obese Code(s): E66.01 - MORBID (SEVERE) OBESITY DUE TO EXCESS CALORIES (4) Diabetes mellitus Code(s): E11.9 - TYPE 2 DIABETES MELLITUS WITHOUT COMPLICATIONS Qualifiers: Diabetes mellitus type: type 2 Diabetes mellitus complication status: with skin complications Diabetes mellitus complication detail: with other skin complication Diabetes mellitus senior living insulin use: without senior living use Qualified Code(s): E11.628 - Type 2 diabetes mellitus with other skin complications wbc trending down plan continue dressing as per surgery will d/w surgery about finding on the lat side of her abd xray seen and findings noted continue vanco for now will check vanco trough once surgery thinks wound is good might be able to switch to oral
[2017-05-07] MEDS: ALBUTEROL SO4 2.5/IPRATROPIUM 0.5 INH SOL 3 ML VIAL.NEB. NEB SCH ×2 (15:00→21:42)
[2017-05-07] MEDS: oxyCODONE HCL 5 MG TABLET PO PRN ×2 (15:28→22:53)
[2017-05-07] MEDS: ACETAMINOPHEN 325 MG TABLET (FP) PO PRN (15:29)
--- NOTE | 2017-05-07 16:23 | PN ---
Progress Note (short form) - Note Progress Note: Diabetic pt s/p I&D of LUQ abdominal wall abscess with culture growing MRSA. Resting comfortably in bed. No fever. WBC coming down, almost normal. Had some respiratory issues with her asthma, getting neb treatment. Vital Signs Period Temp Pulse Resp BP Sys/Wiley Pulse Ox Last 24 Hr 97.6 F-98.2 F 51-60 18-20 114-142/57-79 97 PE: morbidly obese, no distress A&O limbs without rash, no jaundice abdomen obese, soft, small lesion on right lateral abdomen with less focal erythema and induration, center drying up, no active drainage, less tender LUQ wound dressing and packing with serosanguineous and some prescott drainage, packing removed cavity with pink base and some soft yellow slough still on inferior medial outer edge, no active bleeding or purulence expressible, irregular cavity/base wound measures 4 x 1.5 x 2.5 cm at deepest point induration improving, erythema faded to mild hyperpigmentation, still locally tender repacked with 1/2" plain packing, covered with gauze and tape CBC, BMP 05/07/17 06:00 05/07/17 06:00 A/P: POD3 s/p I&D LUQ abdominal wall abscess pain meds prn and for dressing changes wound adequately drained cellulitis resolving MRSA on antibiotics per ID - could change to oral soon R abdominal lesion was coming to small pustular head, no drainage, getting smaller continue daily wound care - packing changes pt may shower daily with dressing off/packing out, as long as it can be redone shortly after pt will need VNS on discharge home to continue daily wound care with packing changes, 1/2" plain packing, covered with gauze and tape pt will follow up in surgery clinic in 1-2 weeks instructions will be left in d/c plan Problem List - Problems (1) Abscess of abdominal wall Code(s): L02.211 - CUTANEOUS ABSCESS OF ABDOMINAL WALL (2) Cellulitis of left abdominal wall Code(s): L03.311 - CELLULITIS OF ABDOMINAL WALL (3) Morbidly obese Code(s): E66.01 - MORBID (SEVERE) OBESITY DUE TO EXCESS CALORIES (4) Diabetes mellitus Code(s): E11.9 - TYPE 2 DIABETES MELLITUS WITHOUT COMPLICATIONS Qualifiers: Diabetes mellitus type: type 2 Diabetes mellitus complication status: with skin complications Diabetes mellitus complication detail: with other skin complication Diabetes mellitus joint terminal attack controller insulin use: without assisted use Qualified Code(s): E11.628 - Type 2 diabetes mellitus with other skin complications
[2017-05-07] MEDS ORDERED: SENNOSIDES 8.6MG TABLET (FP) PO SCH (22:00)
[2017-05-08 06:00] VITALS: BP 119/68; PULSE 56; TEMP 98.5
[2017-05-08] MEDS: ALBUTEROL SO4 2.5/IPRATROPIUM 0.5 INH SOL 3 ML VIAL.NEB. NEB SCH (08:10)
--- NOTE | 2017-05-08 10:24 | DS ---
Physical Examination Vital Signs: Vital Signs Temperature 98.5 F 05/08/17 05:59 Pulse Rate 56 L 05/08/17 05:59 Respiratory Rate 18 05/08/17 05:59 Blood Pressure 119/68 05/08/17 05:59 O2 Sat by Pulse Oximetry (%) 96 05/07/17 21:00 Constitutional: Yes: Well Nourished, No Distress, Calm Cardiovascular: Yes: Regular Rate and Rhythm Respiratory: Yes: Regular Gastrointestinal: Yes: Normal Bowel Sounds, Abdomen, Obese Musculoskeletal: Yes: WNL Extremities: Yes: WNL Edema: No Peripheral Pulses WNL: Yes Neurological: Yes: Alert, Oriented Psychiatric: Yes: Alert, Oriented Labs: CBC, BMP 05/07/17 06:00 05/07/17 06:00 Discharge Summary Reason For Visit: MORBID OBESITY,ABCESS Current Active Problems Abscess (Acute) Cellulitis of left abdominal wall (Acute) Leukocytosis (Acute) MRSA (methicillin resistant staph aureus) culture positive (Acute) Morbidly obese (Acute) Hospital Course: This is a 51-year-old woman with past medical history of hypertension, NIDDM, CHF, A. fib who presents to emergency department with multiple abscesses noted to anterior abdominal wall. Patient states the abscesses appear approximately one week ago and one of the abscesses had started draining. The large abscess in the left upper quadrant and began self draining which is why she sought out care today. Patient states she had similar episode approximately one year ago and required IV antibiotics to help treat status post I&D. She denies fevers, chills, chest pain, shortness of breath, dizziness, nausea, vomiting, diarrhea. During her stay she was seen by Surgery and one of the three abscess was incised and drained. The wound was packed with iodoform. The wound culture showed MRSA. She was treated with IV vanco. She will be discharged on Bactrim DS and follow up outpatient with Surgery. She will also have VNS services at home. Condition: Stable - Instructions Diet, Activity, Other Instructions: Postoperative instructions: You had incision and drainage of a left upper abdominal wall abscess on 05/04/[address] Nikhil Jurado of [facility]. Activity/Wound care: No specific activity restrictions. You may shower daily at home with the dressing off and packing OUT, once a routine has been established with the visiting nurse, so that the wound can be repacked shortly after doing so. Pat the area dry after your shower, and the wound will need to be repacked every day with 1/2" packing ribbon (or damp saline gauze, as it gets smaller and sleeping room cleaner) and covered with gauze and tape. Keep the dressing clean and dry as you are able throughout the day. Pain: For pain, you may use and alternate Tylenol (acetaminophen) and/or ibuprofen every 6 hours each as needed. If you are prescribed a Tylenol/ narcotic combination for severe pain, use it instead of plain Tylenol as needed and switch back when your pain starts decreasing. Do not take more than 4000mg of acetaminophen in a day. Take medications as prescribed or indicated on the labeling. Consider using pain medication 30-60 minutes prior to dressing changes. Take all antibiotics and medications as prescribed. Follow-up: Call Dr. Jurado's office at [phone] to make your postop appointment (Friday 1-2 weeks after surgery as advised). Clinic is held in the [facility] on the first floor of [facility]. Call the office if you have: * increasing pain not responsive to pain medication * fever of 101F or higher * vomiting * unusual or increasing bleeding or drainage from wounds * increasing redness or swelling at wound sites Also, see your primary medical doctor within 1-2 weeks. Referrals: Terence Whatley MD [Primary Care Provider] - Nikhil Jurado MD [Staff Physician] - Disposition: VNS/HOME HEALTH CARE - Home Medications Comprehensive Discharge Medication List: Ambulatory Orders Albuterol Sulfate [Proair Hfa] 8.5 gm IH QID PRN 05/03/17 Ammonium Lactate Lotion [Lac-Hydrin 12% Lotion -] 1 applic TP BID 05/03/17 Bupropion HCl [Wellbutrin Xl] 300 mg PO DAILY 05/03/17 Clotrimazole/Betamet Diprop [Lotrisone Cream (Small Tube)] 1 applic TP BID 05/03 Cyanocobalamin [Vitamin B12 -] 1,000 mcg PO DAILY 05/03/17 Cyclobenzaprine HCl 5 mg PO DAILY 05/03/17 Diltiazem HCl [Cardizem LA] 360 mg PO DAILY 05/03/17 Duloxetine HCl 60 mg PO DAILY 05/03/17 Ergocalciferol [Drisdol Oral Solution -] 50,000 units PO WEEKLY 05/03/17 Esomeprazole Magnesium [Nexium 24Hr] 40 mg PO DAILY 05/03/17 Folic Acid 1 mg PO DAILY 05/03/17 Furosemide [Lasix] 40 mg PO DAILY 05/03/17 Lidocaine 5% Patch [Lidoderm Patch -] 1 patch TP BID 05/03/17 Lubiprostone [Amitiza] 24 mcg PO DAILY 05/03/17 Metformin HCl [Metformin HCl ER] 500 mg PO BID 05/03/17 Mirabegron [Myrbetriq] 50 mg PO DAILY 05/03/17 Montelukast Na [Singulair -] 10 mg PO DAILY 05/03/17 Nystatin 1 each MC BID 05/03/17 Oxycodone HCl/Acetaminophen [Percocet 10-325 mg Tablet] 1 each PO QID PRN Pantoprazole Sodium 40 mg PO DAILY 05/03/17 Propranolol HCl [Propranolol HCl ER] 120 mg PO DAILY 05/03/17 Valsartan 320 mg PO DAILY 05/03/17
[2017-05-08] MEDS: ACETAMINOPHEN 325 MG TABLET (FP) PO PRN (10:56)
[2017-05-08] MEDS: oxyCODONE HCL 5 MG TABLET PO PRN (10:56)
[2017-05-08] MEDS: DULoxetine HCL 30 MG CAPSULE.DR (FP) PO SCH (10:58)
[2017-05-08] MEDS: FUROSEMIDE 40 MG TABLET (FP) PO SCH (10:59)
[2017-05-08] MEDS: VALSARTAN 160 MG TABLET (UD) PO SCH (10:59)
[2017-05-08] MEDS: MONTELUKAST NA 10 MG TABLET PO SCH (10:59)
[2017-05-08] MEDS: FOLIC ACID 1 MG TABLET (FP) PO SCH (10:59)
[2017-05-08] MEDS: PANTOPRAZOLE 40 MG TABLET (FP) PO SCH (10:59)
[2017-05-08] MEDS: HEPARIN NA (PORCINE) 5,000 UNITS/ML 1ML VIAL SQ SCH (11:00)
[2017-05-08] MEDS: AMMONIUM LACTATE 12% LOTION 225 GM BOTTLE TP SCH (11:01)
[2017-05-08] MEDS: CYANOCOBALAMIN 1,000 MCG TABLET (FP) PO SCH (11:02)
--- NOTE | 2017-05-08 11:36 | PN ---
Progress Note (short form) - Note Progress Note: Diabetic pt s/p I&D of LUQ abdominal wall abscess with culture growing MRSA. Resting comfortably in bed. Being discharged today with antibiotics and VNS. Showered this morning but not with dressing off/out. Vital Signs Period Temp Pulse Resp BP Sys/Wiley Pulse Ox Last 24 Hr 98 F-99 F 56-60 18-20 101-142/54-79 96-96 PE: morbidly obese, no distress A&O limbs without rash, no jaundice abdomen obese, soft, small lesion on right lateral abdomen less tender, healing slowly pt pointed out very small early lesion at right edge of upper cleft - not draining, hard to tell if healing or coming on LUQ wound dressing and packing with serosanguineous drainage, packing removed cavity with pink base and minimal yellow slough on inferior medial outer edge, no active bleeding or purulence expressible, irregular cavity/base induration improving, erythema faded to mild hyperpigmentation, mildly tender medially repacked with 1/2" plain packing, covered with gauze and tape no new labs A/P: POD4 s/p I&D LUQ abdominal wall abscess pain meds prn and for dressing changes wound adequately drained cellulitis resolving well MRSA on antibiotics per ID - going home on Bactrim R abdominal lesion healing slowly, regina cleft with very small spot - will reevaluate at followup, not drainable continue daily wound care - packing changes with VNS pt may shower daily with dressing OFF/packing OUT, as long as it can be redone shortly after VNS on discharge home to continue daily wound care with packing changes, 1/2" plain packing, covered with gauze and tape pt will follow up in surgery clinic next Sunday 05/21 - to call for appointment instructions in d/c plan Problem List - Problems (1) Abscess of abdominal wall Code(s): L02.211 - CUTANEOUS ABSCESS OF ABDOMINAL WALL (2) Cellulitis of left abdominal wall Code(s): L03.311 - CELLULITIS OF ABDOMINAL WALL (3) Morbidly obese Code(s): E66.01 - MORBID (SEVERE) OBESITY DUE TO EXCESS CALORIES (4) Diabetes mellitus Code(s): E11.9 - TYPE 2 DIABETES MELLITUS WITHOUT COMPLICATIONS Qualifiers: Diabetes mellitus type: type 2 Diabetes mellitus complication status: with skin complications Diabetes mellitus complication detail: with other skin complication Diabetes mellitus group home insulin use: without dedicated intermodal truck driver use Qualified Code(s): E11.628 - Type 2 diabetes mellitus with other skin complications
--- NOTE | 2017-05-08 11:55 | PN ---
Progress Note, Physician History of Present Illness: stable stable no new issues surgery has seen the patient ok from there side - Current Medication List Current Medications: Active Medications Acetaminophen (Tylenol -) 650 mg PO Q6H PRN PRN Reason: PAIN LEVEL 4 - 6 Last Admin: 05/08/17 10:56 Dose: 650 mg Albuterol Sulfate (Ventolin 0.083% Nebulizer Soln -) 1 amp NEB Q4H PRN PRN Reason: SHORT OF BREATH/WHEEZING Albuterol/Ipratropium (Duoneb -) 1 amp NEB RTID [facility] Last Admin: 05/08/17 08:10 Dose: 1 amp Bupropion HCl (Wellbutrin Xl -) 300 mg PO DAILY [facility] Last Admin: 05/08/17 10:58 Dose: 300 mg Cyanocobalamin (Vitamin B12 -) 1,000 mcg PO DAILY [facility] Last Admin: 05/08/17 11:02 Dose: 1,000 mcg Diltiazem HCl (Cardizem Cd -) 360 mg PO DAILY [facility] Last Admin: 05/08/17 10:58 Dose: 360 mg Duloxetine HCl (Cymbalta -) 60 mg PO DAILY [facility] Last Admin: 05/08/17 10:58 Dose: 60 mg Ergocalciferol (Drisdol -) 50,000 unit PO Fr@1000 [facility] Folic Acid (Folic Acid -) 1 mg PO DAILY [facility] Last Admin: 05/08/17 10:59 Dose: 1 mg Furosemide (Lasix -) 40 mg PO DAILY [facility] Last Admin: 05/08/17 10:59 Dose: 40 mg Heparin Sodium (Porcine) (Heparin -) 5,000 unit SQ BID [facility] Last Admin: 05/08/17 11:00 Dose: 5,000 unit Lactic Acid (Lac-Hydrin 12) 1 applic TP BID [facility] Last Admin: 05/08/17 11:01 Dose: 1 applic Montelukast Sodium (Singulair -) 10 mg PO DAILY [facility] Last Admin: 05/08/17 10:59 Dose: 10 mg Non-Formulary Medication (Lubiprostone [Amitiza]) 24 mcg PO DAILY [facility] Non-Formulary Medication (Mirabegron [Myrbetriq]) 50 mg PO DAILY [facility] Ondansetron HCl (Zofran Odt -) 4 mg SL Q6H PRN PRN Reason: NAUSEA AND/OR VOMITING Ondansetron HCl (Zofran Injection) 8 mg IVPB Q6H PRN PRN Reason: NAUSEA Last Admin: 05/04/17 14:37 Dose: 8 mg Oxycodone HCl (Roxicodone -) 10 mg PO Q6H PRN PRN Reason: PAIN LEVEL 7 - 10 Last Admin: 05/08/17 10:56 Dose: 10 mg Pantoprazole Sodium (Protonix -) 40 mg PO DAILY [facility] Last Admin: 05/08/17 10:59 Dose: 40 mg Propranolol HCl (Inderal La -) 120 mg PO DAILY [facility] Last Admin: 05/08/17 10:59 Dose: 120 mg Senna (Senna -) 1 tab PO HS [facility] Last Admin: 05/07/17 22:53 Dose: 1 tab Valsartan (Diovan -) 320 mg PO DAILY [facility] Last Admin: 05/08/17 10:59 Dose: 320 mg - Objective Vital Signs: Vital Signs Temperature 98.5 F 05/08/17 05:59 Pulse Rate 56 L 05/08/17 05:59 Respiratory Rate 18 05/08/17 05:59 Blood Pressure 119/68 05/08/17 05:59 O2 Sat by Pulse Oximetry (%) 96 05/08/17 09:00 Constitutional: Yes: No Distress, Calm, Obese Cardiovascular: Yes: Regular Rate and Rhythm Gastrointestinal: Yes: Normal Bowel Sounds, Soft Musculoskeletal: Yes: WNL Extremities: Yes: WNL Wound/Incision: Yes: Dressing Dry and Intact Neurological: Yes: Alert, Oriented Psychiatric: Yes: Alert, Oriented Labs: CBC, BMP 05/07/17 06:00 05/07/17 06:00 INR, PTT INR 1.14 (0.82-1.09) 05/03/17 17:52 Assessment/Plan Problem List - Problems (1) Abscess of abdominal wall Code(s): L02.211 - CUTANEOUS ABSCESS OF ABDOMINAL WALL (2) Cellulitis of left abdominal wall Code(s): L03.311 - CELLULITIS OF ABDOMINAL WALL (3) Morbidly obese Code(s): E66.01 - MORBID (SEVERE) OBESITY DUE TO EXCESS CALORIES (4) Diabetes mellitus Code(s): E11.9 - TYPE 2 DIABETES MELLITUS WITHOUT COMPLICATIONS Qualifiers: Diabetes mellitus type: type 2 Diabetes mellitus complication status: with skin complications Diabetes mellitus complication detail: with other skin complication Diabetes mellitus fpc insulin use: without fpc use Qualified Code(s): E11.628 - Type 2 diabetes mellitus with other skin complications plan continue wound care primary send the patient on bactrim rest continue current mgmt follow up with surgery
[2017-05-09] MEDS ORDERED: ERGOCALCIFEROL (VITAMIN D2) 50,000 UNIT CAPSULE (FP) PO SCH (10:00)
== END 2017-05-08 12:36 | disposition home health service (06) | DRG 383 ==
LOC: JER 15:10 → JERBED 19:54 → OBSVTOIN 20:11 → J7W 05-04 16:23
PROVIDERS: ADMIT Family Medicine; ATTEND Family Medicine
PROC: 0W9F0ZX Drainage of Abdominal Wall, Open Approach, Diagnostic (ICD-10-PCS; principal; 2017-05-04)
DX: L02.211 Cutaneous abscess of abdominal wall (principal); I11.0 Hypertensive heart disease with heart failure; I50.9 Heart failure, unspecified; E11.9 Type 2 diabetes mellitus without complications; J45.909 Unspecified asthma, uncomplicated; E66.01 Morbid (severe) obesity due to excess calories; Z68.42 Body mass index [BMI] 45.0-49.9, adult; D72.829 Elevated white blood cell count, unspecified; K21.9 Gastro-esophageal reflux disease without esophagitis
CPT/HCPCS: 36415; 71045-TC-FY; 80048; 80053; 81003; 81015; 82803; 82962; 83036; 83605; 85025; 85027; 85610; 86850; 86870; 86900; 86901; 86902; 87040; 87070; 87086; 87186; 87205; 93005; 93010; 94640; 99285-25; G0378; G0480; J1644

== ENCOUNTER 2017-12-10 10:36 | Day surgery (SDC) | payer OTHER ==
[2017-11-28 12:55] VITALS: BMI 47.6
[2017-12-10] MEDS ORDERED: MIDAZOLAM HCL 2 MG/2 ML SINGLE DOSE VIAL ONE (11:34)
[2017-12-10] MEDS ORDERED: PROPOFOL 20 ML ONE (11:34)
[2017-12-10] MEDS ORDERED: LIDOCAINE HCL 2% (50ML VIAL) INF ONE (11:56)
[2017-12-10] MEDS ORDERED: LABETALOL HCL 5 MG/1 ML (100MG/20 ML VIAL) ONE (11:57)
[2017-12-10 13:16] VITALS: PULSE 74; TEMP 97.8
[2017-12-10 13:20] VITALS: BP 146/94
--- NOTE | 2017-12-16 08:06 | OP ---
DATE OF OPERATION: 12/10/2017 SURGEON: Rashel Howe MD PREOPERATIVE DIAGNOSIS: Right carpal tunnel syndrome. POSTOPERATIVE DIAGNOSIS: Right carpal tunnel syndrome. OPERATIVE PROCEDURE: Right carpal tunnel release. ANESTHESIA: Local with sedation. COMPLICATIONS: None. ESTIMATED BLOOD LOSS: Minimal. INDICATIONS FOR PROCEDURE: The patient is a 52-year-old female with the above findings, indicated for operative treatment. The risks, benefits, and alternatives were discussed with the patient at length, and proper informed consent was obtained. PROCEDURE: After proper identification of the patient and the correct operative site, the patient was brought to the operating room and placed on the table with prominences well padded. Sedation and local anesthesia were given. Right upper extremity was prepped and draped in the usual sterile fashion. Esmarch bandage used to exsanguinate the right upper extremity. Tourniquet inflated to 250 mmHg. A longitudinal incision was made over the proximal aspect of the palm. Incision was taken sharply through the skin with blunt and sharp dissection through subcutaneous tissues. Palmar fascia was divided longitudinally. The transverse carpal ligament was divided longitudinally along with the distal 4 cm of antebrachial fascia under direct visualization with loupe magnification. This provided complete release of the median nerve at the wrist. Wound was irrigated with saline and repaired with 5-0 nylon suture. Sterile dressings were applied. The patient was reversed from anesthesia and brought to the recovery room in stable condition. She tolerated the procedure well. RASHEL HOWE M.D. [id number]
== END 2017-12-10 13:10 | disposition home or self-care (01) ==
LOC: FASU 10:36
PROVIDERS: ATTEND Orthopaedic Surgery Hand Surgery
PROC: 01N50ZZ Release Median Nerve, Open Approach (ICD-10-PCS; principal; 2017-12-10 11:56)
DX: G56.01 Carpal tunnel syndrome, right upper limb (principal)
CPT/HCPCS: 82962; 87081

== ENCOUNTER 2020-05-03 19:08 | Inpatient (IN) | payer OTHER ==
[2020-05-03] MEDS ORDERED: FAMOTIDINE 20 MG/50 ML IVPB 20 MG/50 ML MG IVPB ONE ×2 (20:07→20:15)
[2020-05-03] MEDS ORDERED: SODIUM CHLORIDE 1,000 ML IV STA (20:07)
[2020-05-03] MEDS ORDERED: morphine CARPU-JECT 4 MG/1 ML DISP.SYRIN IVPUSH ONE (20:07)
[2020-05-03] MEDS ORDERED: ONDANSETRON 4 MG/2 ML VIAL IVPUSH ONE (20:07)
[2020-05-03 20:11] LABS: BASO % 0.8 % (0-2.0); EOS % 1.5 % (0-4.5); HEMATOCRIT 41.3 % (32.4-45.2); HEMOGLOBIN 13.7 GM/dL (10.7-15.3); LYMPH % 36.2 % (8-40); MCH 28.8 pg (25.7-33.7); MCHC 33.1 g/dl (32.0-36.0); MEAN CELL VOLUME 87.1 fl (80-96); MONO % 7.4 % (3.8-10.2); NEUT % 54.1 % (42.8-82.8); PLATELET COUNT 330 K/MM3 (134-434); RBC 4.74 M/mm3 (3.60-5.2); RDW 15.5 % (11.6-15.6); WHITE BLOOD COUNT 10.8 K/mm3 (4.0-10.0)
[2020-05-03] MEDS ORDERED: morphine SULFATE 4 MG/ML VIAL ONE (20:14)
[2020-05-03] MEDS ORDERED: ONDANSETRON 4 MG/2 ML VIAL ONE (20:14)
[2020-05-03 20:21] LABS: CHLORIDE 105 mmol/L (98-107); POTASSIUM 4.1 mmol/L (3.5-5.1); PROTHROMBIN TIME (PATIENT) 12.3 SEC (9.7-13.0); SODIUM 141 mmol/L (136-145)
[2020-05-03 20:23] LABS: ACTIVATED PTT 33.1 SECONDS (25.2-36.5)
[2020-05-03 20:24] LABS: ALBUMIN 3.4 g/dl (3.4-5.0); ANION GAP 5 MMOL/L (8-16); CALCIUM 9.2 mg/dL (8.5-10.1); CO2 31 mmol/L (21-32); GLUCOSE,RANDOM 108 mg/dL (74-106); MAGNESIUM 1.9 mg/dL (1.8-2.4)
[2020-05-03 20:26] LABS: SGOT/AST 18 U/L (15-37); SGPT/ALT 29 U/L (13-61)
[2020-05-03 20:27] LABS: CREATININE 1.1 mg/dL (0.55-1.3)
[2020-05-03 20:29] LABS: ALK PHOS 98 U/L (45-117); BILIRUBIN,TOTAL 0.2 mg/dL (0.2-1); TOT PROT 7.4 g/dl (6.4-8.2)
[2020-05-03 21:08] LABS: LIPASE 138 U/L (73-393)
[2020-05-03 21:10] LABS: AMYLASE 78 U/L (25-115)
[2020-05-03] MEDS ORDERED: ACETAMINOPHEN 1000 MG/100 ML VIAL (NON FORMULARY) IVPB ONE (22:08)
[2020-05-03 22:45] LABS: EPI CELLS 5 /uL (0-25.1); HYALINE CASTS 0 /uL (0-3.1); URINE APPEARANCE CLEAR; URINE BACTERIA 166 /uL (0-1359); URINE BILIRUBIN NEGATIVE (NEGATIVE); URINE COLOR YELLOW; URINE GLUCOSE (UA) NEGATIVE (NEGATIVE); URINE KETONE NEGATIVE (NEGATIVE); URINE LEUK ESTERASE 2+ (NEGATIVE); URINE NITRITE NEGATIVE (NEGATIVE); URINE PROTEIN NEGATIVE (NEGATIVE); URINE RBC 16 /uL (0-23.9); URINE UROBILINOGEN 0.2 mg/dL (0.2-1.0); URINE WBC 338 /uL (0-25.8)
[2020-05-03] MEDS: DEXTROSE 5%-0.45% SALINE 1,000 ML IV SCH (23:01)
[2020-05-04] MEDS ORDERED: ACETAMINOPHEN INJECTION 100 ML IVPB ONE (00:43)
[2020-05-04 07:51] LABS: EOS % 0.9 % (0-4.5); HEMATOCRIT 40.2 % (32.4-45.2); HEMOGLOBIN 13.1 GM/dL (10.7-15.3); LYMPH % 36.6 % (8-40); MCH 28.6 pg (25.7-33.7); MCHC 32.6 g/dl (32.0-36.0); MEAN CELL VOLUME 87.8 fl (80-96); MEAN PLT VOLUME 9.5 fl (7.5-11.1); MONO % 7.5 % (3.8-10.2); PLATELET COUNT 282 K/MM3 (134-434); RBC 4.58 M/mm3 (3.60-5.2); RDW 15.8 % (11.6-15.6); WHITE BLOOD COUNT 9.1 K/mm3 (4.0-10.0)
[2020-05-04] MEDS ORDERED: morphine SULFATE 4 MG/ML VIAL ONE ×2 (08:08→16:20)
[2020-05-04] MEDS ORDERED: ONDANSETRON 4 MG/2 ML VIAL ONE ×2 (08:08→16:21)
[2020-05-04] MEDS: ONDANSETRON 4 MG/2 ML VIAL IVPUSH PRN ×2 (08:10→16:25)
[2020-05-04] MEDS: morphine SULFATE 4 MG/ML VIAL IVPUSH PRN ×3 (08:11→22:39)
[2020-05-04 08:12] LABS: POTASSIUM 4.8 mmol/L (3.5-5.1)
[2020-05-04 08:21] LABS: ALBUMIN 3.1 g/dl (3.4-5.0); BLOOD UREA NITROGEN 16.3 mg/dL (7-18); CALCIUM 8.8 mg/dL (8.5-10.1)
[2020-05-04 08:25] LABS: BILIRUBIN,TOTAL 0.4 mg/dL (0.2-1); CREATININE 0.9 mg/dL (0.55-1.3)
[2020-05-04 08:26] LABS: TOT PROT 6.7 g/dl (6.4-8.2)
[2020-05-04] MEDS ORDERED: PIPERACILLIN/TAZOB 3.375 GM 3.375 GM in DEXTROSE 5%-WATER - 50 ML IVPB SCH ×2 (09:00→10:00)
[2020-05-04] MEDS ORDERED: PANTOPRAZOLE SODIUM 40 MG VIAL IVPUSH SCH (10:00)
[2020-05-04] MEDS ORDERED: PIPERACILLIN/TAZOB 3.375 GM 3.375 GM/50 ML BAG IVPB ONE (10:47)
[2020-05-04] MEDS ORDERED: PANTOPRAZOLE SODIUM 40 MG VIAL ONE (10:48)
[2020-05-04] MEDS: HEPARIN NA (PORCINE) 5,000 UNITS/ML 1ML VIAL SQ SCH ×2 (11:48→22:38)
[2020-05-04] MEDS ORDERED: HEPARIN NA (PORCINE) 5,000 UNITS/ML 1ML VIAL ONE (11:50)
[2020-05-04] MEDS: PIPERACILLIN/TAZOB 3.375 GM 3.375 GM in DEXTROSE 5%-WATER - 50 ML IVPB SCH (18:00)
[2020-05-04] MEDS ORDERED: MORPHINE SULFATE 2 MG/ML VIAL ONE (20:57)
[2020-05-04] MEDS: PANTOPRAZOLE SODIUM 40 MG VIAL IVPUSH SCH (22:38)
[2020-05-04] MEDS: DEXTROSE 5%-0.45% SALINE 1,000 ML IV SCH (22:38)
[2020-05-05 01:12] VITALS: BMI 51.0
[2020-05-05] MEDS ORDERED: DEXTROSE 5%-WATER - 50 ML IVPB ONE (01:18)
[2020-05-05] MEDS ORDERED: PIPERACILLIN/TAZOBACTAM 3.375 GM VIAL IVPB ONE (01:18)
[2020-05-05] MEDS: PIPERACILLIN/TAZOB 3.375 GM 3.375 GM in DEXTROSE 5%-WATER - 50 ML IVPB SCH ×2 (01:57→11:01)
[2020-05-05 08:43] LABS: BASO % 0.6 % (0-2.0); EOS % 1.4 % (0-4.5); HEMATOCRIT 40.1 % (32.4-45.2); HEMOGLOBIN 13.2 GM/dL (10.7-15.3); LYMPH % 33.4 % (8-40); MCH 28.9 pg (25.7-33.7); MCHC 32.9 g/dl (32.0-36.0); MEAN CELL VOLUME 87.7 fl (80-96); MEAN PLT VOLUME 9.2 fl (7.5-11.1); MONO % 7.1 % (3.8-10.2); NEUT % 57.5 % (42.8-82.8); PLATELET COUNT 299 K/MM3 (134-434); RBC 4.57 M/mm3 (3.60-5.2); RDW 15.6 % (11.6-15.6); WHITE BLOOD COUNT 8.2 K/mm3 (4.0-10.0)
[2020-05-05 09:05] LABS: POTASSIUM 4.1 mmol/L (3.5-5.1)
[2020-05-05 09:08] LABS: CALCIUM 9.4 mg/dL (8.5-10.1)
[2020-05-05 09:09] LABS: ALBUMIN 3.2 g/dl (3.4-5.0); BLOOD UREA NITROGEN 11.8 mg/dL (7-18)
[2020-05-05 09:12] LABS: CREATININE 1.1 mg/dL (0.55-1.3)
[2020-05-05 09:14] LABS: BILIRUBIN,TOTAL 0.7 mg/dL (0.2-1); TOT PROT 6.9 g/dl (6.4-8.2)
[2020-05-05] MEDS: PANTOPRAZOLE SODIUM 40 MG VIAL IVPUSH SCH ×2 (11:03→21:00)
[2020-05-05] MEDS: HEPARIN NA (PORCINE) 5,000 UNITS/ML 1ML VIAL SQ SCH ×2 (11:04→21:00)
[2020-05-05] MEDS: morphine SULFATE 4 MG/ML VIAL IVPUSH PRN (11:17)
[2020-05-05] MEDS ORDERED: ACETAMINOPHEN 1000 MG/100 ML VIAL (NON FORMULARY) IVPB PRN ×2 (11:29→16:30)
[2020-05-05] MEDS ORDERED: morphine SULFATE 4 MG/ML VIAL IVPUSH PRN (11:30)
[2020-05-05] MEDS: DEXTROSE 5%-0.45% SALINE 1,000 ML IV SCH ×2 (13:11→17:03)
[2020-05-05] MEDS ORDERED: MIDAZOLAM HCL 2 MG/2 ML SINGLE DOSE VIAL ONE (14:50)
[2020-05-05] MEDS ORDERED: LIDOCAINE HCL/PF 2% SDV 5ML VIAL ONE (14:50)
[2020-05-05] MEDS ORDERED: PROPOFOL 20 ML ONE (14:50)
[2020-05-05] MEDS ORDERED: ROCURONIUM BROMIDE 100 MG/10 ML VIAL ONE (14:50)
[2020-05-05] MEDS ORDERED: fentaNYL CITRATE 250 MCG/5 ML VIAL ONE (14:50)
[2020-05-05] MEDS ORDERED: EPHEDRINE SULFATE/0.9% NACL/PF 50 MG/10 ML SYRINGE NR ONE (15:10)
[2020-05-05] MEDS ORDERED: BUPIVACAINE HCL/PF 0.5% (5 MG/ML) 30 ML VIAL IJ ONE ×3 (15:24)
[2020-05-05] MEDS ORDERED: NEOSTIGMINE METHYLSULFATE 0.5 MG/ML - 10 ML MDV ONE (16:10)
[2020-05-05] MEDS ORDERED: KETOROLAC TROMETHAMINE 30 MG/1 ML VIAL ONE (16:10)
[2020-05-05] MEDS ORDERED: GLYCOPYRROLATE 0.2 MG/1 ML VIAL ONE (16:10)
[2020-05-05] MEDS ORDERED: MORPHINE SULFATE 2 MG/ML VIAL IVPUSH PRN ×2 (16:20→16:42)
[2020-05-05] MEDS ORDERED: ONDANSETRON 4 MG/2 ML VIAL IVPUSH PRN ×2 (16:24→16:30)
[2020-05-05] MEDS ORDERED: PROMETHAZINE HCL 25 MG/1 ML VIAL IVPUSH PRN (16:24)
[2020-05-05] MEDS ORDERED: oxyCODONE HCL 5 MG TABLET PO PRN ×2 (16:30→16:42)
[2020-05-05] MEDS ORDERED: LACTATED RINGERS SOLUTION 1,000 ML IV SCH (16:30)
[2020-05-05] MEDS ORDERED: ACETAMINOPHEN 325 MG TABLET (FP) PO PRN (16:30)
[2020-05-05] MEDS ORDERED: HEPARIN NA (PORCINE) 5,000 UNITS/ML 1ML VIAL SQ SCH (22:00)
[2020-05-06] MEDS: MORPHINE SULFATE 2 MG/ML VIAL IVPUSH PRN ×5 (02:18→23:51)
[2020-05-06] MEDS: HEPARIN NA (PORCINE) 5,000 UNITS/ML 1ML VIAL SQ SCH ×3 (05:25→21:18)
[2020-05-06] MEDS: PANTOPRAZOLE SODIUM 40 MG VIAL IVPUSH SCH ×2 (09:00→21:18)
[2020-05-06 10:17] LABS: BASO % 0.6 % (0-2.0); EOS % 0.3 % (0-4.5); HEMATOCRIT 38.4 % (32.4-45.2); HEMOGLOBIN 12.6 GM/dL (10.7-15.3); LYMPH % 16.5 % (8-40); MCH 28.7 pg (25.7-33.7); MCHC 32.7 g/dl (32.0-36.0); MEAN PLT VOLUME 9.6 fl (7.5-11.1); MONO % 9.4 % (3.8-10.2); NEUT % 73.2 % (42.8-82.8); PLATELET COUNT 299 K/MM3 (134-434); RBC 4.37 M/mm3 (3.60-5.2); RDW 15.5 % (11.6-15.6)
[2020-05-06 10:38] LABS: POTASSIUM 3.9 mmol/L (3.5-5.1)
[2020-05-06 10:41] LABS: BLOOD UREA NITROGEN 12.3 mg/dL (7-18)
[2020-05-06 10:44] LABS: ALBUMIN 3.1 g/dl (3.4-5.0); CALCIUM 8.7 mg/dL (8.5-10.1)
[2020-05-06 10:48] LABS: BILIRUBIN,TOTAL 0.5 mg/dL (0.2-1); CREATININE 1.2 mg/dL (0.55-1.3); TOT PROT 6.6 g/dl (6.4-8.2)
[2020-05-06] MEDS: SIMETHICONE 80 MG TAB.CHEW (FP) PO PRN (11:21)
[2020-05-06] MEDS: DEXTROSE 5%-0.45% SALINE 1,000 ML IV SCH (16:48)
[2020-05-07] MEDS: DEXTROSE 5%-0.45% SALINE 1,000 ML IV SCH (03:38)
[2020-05-07] MEDS: MORPHINE SULFATE 2 MG/ML VIAL IVPUSH PRN ×2 (03:44→06:47)
[2020-05-07] MEDS: HEPARIN NA (PORCINE) 5,000 UNITS/ML 1ML VIAL SQ SCH (06:19)
[2020-05-07] MEDS ORDERED: ONDANSETRON *ODT* 4 MG TABLET SL PRN (07:27)
[2020-05-07] MEDS ORDERED: ACETAMINOPHEN 325 MG TABLET (FP) PO ONE (07:29)
[2020-05-07 08:12] LABS: POTASSIUM 3.6 mmol/L (3.5-5.1)
[2020-05-07 08:16] LABS: EOS % 1.9 % (0-4.5); HEMATOCRIT 39.2 % (32.4-45.2); HEMOGLOBIN 12.9 GM/dL (10.7-15.3); LYMPH % 35.4 % (8-40); MCH 29.1 pg (25.7-33.7); MCHC 32.9 g/dl (32.0-36.0); MEAN CELL VOLUME 88.5 fl (80-96); MEAN PLT VOLUME 9.3 fl (7.5-11.1); MONO % 7.7 % (3.8-10.2); PLATELET COUNT 295 K/MM3 (134-434); RBC 4.43 M/mm3 (3.60-5.2); RDW 15.6 % (11.6-15.6); WHITE BLOOD COUNT 11.5 K/mm3 (4.0-10.0)
[2020-05-07 08:18] LABS: BLOOD UREA NITROGEN 11.2 mg/dL (7-18); CALCIUM 8.6 mg/dL (8.5-10.1)
[2020-05-07 08:19] LABS: ALBUMIN 3.1 g/dl (3.4-5.0); BILIRUBIN,TOTAL 0.5 mg/dL (0.2-1)
[2020-05-07 08:21] LABS: CREATININE 1.2 mg/dL (0.55-1.3)
[2020-05-07] MEDS: SIMETHICONE 80 MG TAB.CHEW (FP) PO PRN (09:41)
[2020-05-07] MEDS ORDERED: PANTOPRAZOLE 40 MG TABLET PO SCH (10:00)
[2020-05-07 11:22] VITALS: BP 121/74; PULSE 61; TEMP 98.5
== END 2020-05-07 11:32 | disposition home or self-care (01) | DRG 263 ==
LOC: JER 19:08 → JERBED 21:57 → J5WEST-2 05-04 20:40
PROVIDERS: ADMIT Internal Medicine; ATTEND Family Medicine
PROC: 0WQF0ZZ Repair Abdominal Wall, Open Approach (ICD-10-PCS; 2020-05-05)
PROC: 0FT44ZZ Resection of Gallbladder, Percutaneous Endoscopic Approach (ICD-10-PCS; principal; 2020-05-05 15:00)
DX: K80.00 Calculus of gallbladder with acute cholecystitis without obstruction (principal); I10 Essential (primary) hypertension; E78.5 Hyperlipidemia, unspecified; E11.9 Type 2 diabetes mellitus without complications; E66.01 Morbid (severe) obesity due to excess calories; Z68.43 Body mass index [BMI] 50.0-59.9, adult; K21.9 Gastro-esophageal reflux disease without esophagitis; J45.909 Unspecified asthma, uncomplicated; F32.9 Major depressive disorder, single episode, unspecified; K52.9 Noninfective gastroenteritis and colitis, unspecified; K42.9 Umbilical hernia without obstruction or gangrene; Z87.11 Personal history of peptic ulcer disease
CPT/HCPCS: 36415; 71045-TC-FY; 74177-TC; 76705-TC; 80053; 81003; 82150; 83036; 83690; 83735; 84484; 84703; 85025; 85610; 85730; 87086; 88302-TC; 88304-TC; 93005; 93010; 94760; 99285-25; C9803; J0131; J1644; Q9967; U0003

== ENCOUNTER 2021-01-08 13:06 | Emergency (ER) | payer OTHER ==
[2021-01-08 13:25] VITALS: BP 153/93; PULSE 77; TEMP 98.6; BMI 47.6
[2021-01-08 15:37] LABS: BASO % 0.6 % (0-2.0); EOS % 1.3 % (0-4.5); HEMATOCRIT 42.6 % (32.4-45.2); HEMOGLOBIN 14.2 GM/dL (10.7-15.3); LYMPH % 34.1 % (8-40); MCH 28.6 pg (25.7-33.7); MCHC 33.3 g/dl (32.0-36.0); MEAN PLT VOLUME 8.4 fl (7.5-11.1); MONO % 6.5 % (3.8-10.2); NEUT % 57.5 % (42.8-82.8); PLATELET COUNT 365 10^3/uL (134-434); RBC 4.95 M/mm3 (3.60-5.2); WHITE BLOOD COUNT 11.6 K/mm3 (4.0-10.0)
[2021-01-08 15:51] LABS: ALBUMIN 3.3 g/dl (3.4-5.0); CALCIUM 9.3 mg/dL (8.5-10.1)
[2021-01-08 15:52] LABS: BLOOD UREA NITROGEN 14.9 mg/dL (7-18)
[2021-01-08 15:56] LABS: BILIRUBIN,TOTAL 0.5 mg/dL (0.2-1); TOT PROT 7.8 g/dl (6.4-8.2)
[2021-01-08 17:38] LABS: EPI CELLS 2 /uL (0-25.1); HYALINE CASTS 0 /uL (0-3.1); PH,URINE 5.5 (5.0-8.0); URINE APPEARANCE CLEAR; URINE BACTERIA 19 /uL (0-1359); URINE BILIRUBIN NEGATIVE (NEGATIVE); URINE COLOR YELLOW; URINE GLUCOSE (UA) NEGATIVE (NEGATIVE); URINE KETONE NEGATIVE (NEGATIVE); URINE LEUK ESTERASE TRACE (NEGATIVE); URINE NITRITE NEGATIVE (NEGATIVE); URINE PROTEIN 1+ (NEGATIVE); URINE RBC 5 /uL (0-23.9); URINE UROBILINOGEN 0.2 mg/dL (0.2-1.0); URINE WBC 14 /uL (0-25.8)
== END 2021-01-08 16:57 | disposition home or self-care (01) ==
LOC: JER 13:06
PROC: 0H97XZZ Drainage of Abdomen Skin, External Approach (ICD-10-PCS; principal; 2021-01-08)
DX: K65.1 Peritoneal abscess (principal); L03.311 Cellulitis of abdominal wall
CPT/HCPCS: 10060; 36415; 76705-TC; 80053; 81003; 84703; 85025; 87086; 99283-25

== ENCOUNTER 2021-01-10 09:42 | Emergency (ER) | payer OTHER ==
[2021-01-10 09:49] VITALS: BP 126/73; PULSE 85; TEMP 98.2; BMI 47.6
== END 2021-01-10 10:57 | disposition home or self-care (01) ==
LOC: JER 09:42
DX: Z48.00 Encounter for change or removal of nonsurgical wound dressing (principal)
CPT/HCPCS: 99281-25

== ENCOUNTER 2022-09-16 12:24 | Emergency (ER) | payer OTHER ==
[2022-09-16 12:29] VITALS: BP 115/81; PULSE 68; RESP 18; TEMP 97.8; BMI 44.4
[2022-09-16] MEDS ORDERED: LIDOCAINE 5% TOPICAL PATCH TP ONE (13:14)
[2022-09-16] MEDS ORDERED: CYCLOBENZAPRINE HCL 10 MG TABLET (FP) PO ONE (13:14)
[2022-09-16] MEDS ORDERED: KETOROLAC TROMETHAMINE 30 MG/1 ML VIAL IVPUSH ONE (13:14)
[2022-09-16] MEDS ORDERED: KETOROLAC TROMETHAMINE 30 MG/1 ML VIAL IM ONE (13:16)
[2022-09-16] MEDS ORDERED: LIDOCAINE 5% TOPICAL PATCH ONE (13:18)
[2022-09-16] MEDS ORDERED: CYCLOBENZAPRINE HCL 10 MG TABLET (FP) ONE (13:19)
[2022-09-16] MEDS ORDERED: KETOROLAC TROMETHAMINE 30 MG/1 ML VIAL ONE (13:19)
[2022-09-16] MEDS ORDERED: LIDOCAINE PATCH REMOVAL MC SCH (22:00)
== END 2022-09-16 14:50 | disposition home or self-care (01) ==
LOC: JER 12:24 → JERFT 12:24
PROC: 3E0233Z Introduction of Anti-inflammatory into Muscle, Percutaneous Approach (ICD-10-PCS; principal; 2022-09-16)
DX: M54.32 Sciatica, left side (principal); M62.830 Muscle spasm of back
CPT/HCPCS: 72100-TC-FY; 99284-25

== ENCOUNTER 2022-11-15 18:06 | Emergency (ER) | payer OTHER ==
[2022-11-15 18:13] VITALS: BP 126/85; PULSE 66; RESP 18; TEMP 97.7; BMI 47.6
[2022-11-15] MEDS ORDERED: FAMOTIDINE 20 MG/50 ML IVPB 20 MG/50 ML MG IVPB ONE ×2 (19:27→20:13)
[2022-11-15] MEDS ORDERED: morphine CARPU-JECT 4 MG/1 ML DISP.SYRIN IVPUSH ONE (19:40)
[2022-11-15] MEDS ORDERED: ONDANSETRON 4 MG/2 ML VIAL IVPUSH ONE (19:40)
[2022-11-15] MEDS ORDERED: morphine SULFATE 4 MG/ML VIAL ONE (20:12)
[2022-11-15] MEDS ORDERED: ONDANSETRON 4 MG/2 ML VIAL ONE (20:13)
[2022-11-15 20:47] LABS: BASO % 0.4 % (0-2.0); EOS % 3.5 % (0-4.5); HEMATOCRIT 42.9 % (32.4-45.2); HEMOGLOBIN 14.4 GM/dL (10.7-15.3); LYMPH % 39.7 % (8-40); MCH 28.9 pg (25.7-33.7); MCHC 33.5 g/dl (32.0-36.0); MEAN CELL VOLUME 86.2 fl (80-96); MEAN PLT VOLUME 8.6 fl (7.5-11.1); MONO % 7.6 % (3.8-10.2); NEUT % 48.8 % (42.8-82.8); PLATELET COUNT 335 10^3/uL (134-434); RBC 4.98 M/mm3 (3.60-5.2); RDW 15.4 % (11.6-15.6); WHITE BLOOD COUNT 9.2 K/mm3 (4.0-10.0)
[2022-11-15 20:51] LABS: PROTHROMBIN TIME (PATIENT) 11.6 SEC (9.7-13.0)
[2022-11-15 20:55] LABS: ACTIVATED PTT 33.8 SECONDS (25.2-36.5)
[2022-11-15 21:12] LABS: POTASSIUM 3.9 mmol/L (3.5-5.1)
[2022-11-15 21:14] LABS: ALBUMIN 3.6 g/dl (3.4-5.0); BLOOD UREA NITROGEN 17.2 mg/dL (7-18); CALCIUM 9.4 mg/dL (8.5-10.1)
[2022-11-15 21:17] LABS: CREATININE 1.2 mg/dL (0.55-1.3)
[2022-11-15 21:19] LABS: BILIRUBIN,TOTAL 0.2 mg/dL (0.2-1); TOT PROT 7.8 g/dl (6.4-8.2)
[2022-11-15 21:43] LABS: EPI CELLS 5 /uL (0-25.1); HYALINE CASTS 0 /uL (0-3.1); URINE APPEARANCE CLEAR; URINE BACTERIA 242 /uL (0-1359); URINE BILIRUBIN NEGATIVE (NEGATIVE); URINE COLOR YELLOW; URINE GLUCOSE (UA) NEGATIVE (NEGATIVE); URINE KETONE NEGATIVE (NEGATIVE); URINE LEUK ESTERASE 2+ (NEGATIVE); URINE NITRITE NEGATIVE (NEGATIVE); URINE PROTEIN 1+ (NEGATIVE); URINE RBC 45 /uL (0-23.9); URINE UROBILINOGEN 0.2 mg/dL (0.2-1.0); URINE WBC 204 /uL (0-25.8)
[2022-11-15] MEDS ORDERED: CEFTRIAXONE 1,000 MG in DEXTROSE 5%-WATER - 50 ML IVPB ONE (21:55)
[2022-11-15] MEDS ORDERED: CEFTRIAXONE 1 GM/50 ML BAG ONE (22:56)
[2022-11-16] MEDS ORDERED: CIPROFLOXACIN 500 MG TABLET (RESTRICTED TO ID) PO ONE (01:58)
[2022-11-16] MEDS ORDERED: metroNIDAZOLE 250 MG TABLET PO ONE (01:58)
[2022-11-16] MEDS ORDERED: metroNIDAZOLE 250 MG TABLET ONE (02:19)
== END 2022-11-16 02:55 | disposition home or self-care (01) ==
LOC: JER 18:06
PROC: 3E03329 Introduction of Other Anti-infective into Peripheral Vein, Percutaneous Approach (ICD-10-PCS; principal; 2022-11-15)
PROC: 3E033GC Introduction of Other Therapeutic Substance into Peripheral Vein, Percutaneous Approach (ICD-10-PCS; 2022-11-15)
PROC: 3E033GC Introduction of Other Therapeutic Substance into Peripheral Vein, Percutaneous Approach (ICD-10-PCS; 2022-11-15)
PROC: 3E033GC Introduction of Other Therapeutic Substance into Peripheral Vein, Percutaneous Approach (ICD-10-PCS; 2022-11-15)
DX: R10.33 Periumbilical pain (principal); R30.0 Dysuria; K42.9 Umbilical hernia without obstruction or gangrene; N39.0 Urinary tract infection, site not specified; K57.92 Diverticulitis of intestine, part unspecified, without perforation or abscess without bleeding
CPT/HCPCS: 36415; 74177-TC; 80053; 81003; 83605; 83690; 84484; 85025; 85610; 85730; 87086; 93005; 93010; 99285-25; Q9967

== ENCOUNTER 2022-12-10 05:00 | Day surgery (SDC) | payer OTHER ==
[2022-12-09 12:17] VITALS: BMI 47.6
[2022-12-10 08:32] VITALS: TEMP 97.1
[2022-12-10 09:00] VITALS: BP 123/78; PULSE 65; RESP 22
== END 2022-12-10 09:06 | disposition home or self-care (01) ==
LOC: JASU-ENDO 05:00
PROVIDERS: ATTEND Internal Medicine Gastroenterology
PROC: 0DB78ZX Excision of Stomach, Pylorus, Via Natural or Artificial Opening Endoscopic, Diagnostic (ICD-10-PCS; 2022-12-10)
PROC: 0DB28ZX Excision of Middle Esophagus, Via Natural or Artificial Opening Endoscopic, Diagnostic (ICD-10-PCS; 2022-12-10)
PROC: 0DB38ZX Excision of Lower Esophagus, Via Natural or Artificial Opening Endoscopic, Diagnostic (ICD-10-PCS; principal; 2022-12-10 08:00)
DX: K29.50 Unspecified chronic gastritis without bleeding (principal); K21.00 Gastro-esophageal reflux disease with esophagitis, without bleeding; K25.9 Gastric ulcer, unspecified as acute or chronic, without hemorrhage or perforation; K44.9 Diaphragmatic hernia without obstruction or gangrene; I10 Essential (primary) hypertension; E11.9 Type 2 diabetes mellitus without complications; Z79.84 Long term (current) use of oral hypoglycemic drugs
CPT/HCPCS: 82962; 88305-TC; 88342-TC